=== PATIENT | female | born 1940 | race Caucasian/White ===

== ENCOUNTER 2023-01-04 17:28 | Emergency (ER) | payer OTHER ==
[~2023-01-04] VITALS: Ht 154.9 cm; Wt 68.7 kg
[2023-01-04] MEDS ORDERED: BUPROPION HCL150 M2 PO (17:53)
[2023-01-04] MEDS ORDERED: SERTRALINE HCL25 MG PO (17:53)
[2023-01-04] MEDS ORDERED: ROPINIROLE HCL5 MG PO (17:53)
[2023-01-04] MEDS ORDERED: VERAPAMIL ER240 MG PO (17:53)
[2023-01-04] MEDS ORDERED: LEVOTHYROXINE50 MCG PO (17:53)
[2023-01-04 18:03] LABS: BASOPHILS 1.4 % (0-2); EOSINOPHILS 5.5 % (0-6); HEMATOCRIT 35.2 % (35.0-50.0); HEMOGLOBIN 11.7 g/dL (12.0-18.0); LYMPHOCYTES 17.7 % (24-44); MCH 30.3 (27-36); MCHC 33.3 g/dl (30-36); MCV 90.8 fl (81-99); MONOCYTES 10.7 % (0-12); NEUTROPHILS 64.7 % (39-80); PLATELET COUNT 210 K/uL (140-440); RBC 3.88 M/ul (4.3-5.7); RDW 14.4 (10.5-15.0)
[2023-01-04 18:26] LABS: ALBUMIN 3.9 g/dL (3.4-5.0); ALBUMIN/GLOBULIN RATIO 1.34 (1.1-2.4); ANION GAP 9.8 (7-21); BILIRUBIN, TOTAL 0.3 ng/dL (0.2-1.0); BUN/CREATININE RATIO 42.25 (6.0-28.6); CALCIUM 9.1 mg/dL (8.5-10.1); CREATININE, SERUM 0.71 mg/dL (0.55-1.02); POTASSIUM 3.8 mmol/L (3.5-5.1); PROTEIN, TOTAL 6.8 g/dL (6.4-8.2)
[2023-01-04] MEDS ORDERED: HYDROCODON-ACE1 EA10 PO (19:03)
[2023-01-04 19:18] VITALS: BP 137/65
--- NOTE | 2023-01-05 22:46 | EKG ---
[facility] [address] [place] [address] Signed Normal sinus rhythm Normal ECG No previous ECGs available Confirmed by Lydia Alvarado MD () on 01/05/2023 10:45:39 PM Electronically Signed By: LYDIA ALVARADO MD 01/05/23 2246 PATIENT NAME: MARYBEL CAMARENA Electrocardiogram DATE OF : 40 PHYSICIAN: LYDIA ALVARADO MD REPORT #: [id number] REPORT IS CONFIDENTIAL AND NOT TO BE RELEASED WITHOUT AUTHORIZATION
== END 2023-01-04 19:19 | disposition home or self-care (01) ==
LOC: ED 17:28
PROVIDERS: Internal Medicine
DX: S20.211A Contusion of right front wall of thorax, initial encounter (principal); W19.XXXA Unspecified fall, initial encounter; I10 Essential (primary) hypertension; J44.9 Chronic obstructive pulmonary disease, unspecified; F17.210 Nicotine dependence, cigarettes, uncomplicated; Z79.899 Other long term (current) drug therapy
CPT/HCPCS: 36415; 71250; 80053; 83880; 84484; 85025; 85730; 93005; 93010; J2270

== ENCOUNTER 2023-04-05 08:26 | Observation (INO) | payer OTHER, MEDICARE ==
[~2023-04-05] VITALS: Ht 154.9 cm; Wt 62.2 kg
[~2023-04-05 08:26] MED LIST: BUPROPION HCL150 M2 PO; HYDROCODON-ACE1 EA10 PO; LEVOTHYROXINE50 MCG PO; ROPINIROLE HCL5 MG PO; SERTRALINE HCL25 MG PO; VERAPAMIL ER240 MG PO
[2023-04-05] MEDS ORDERED: ALEVE220 MG PO (08:42)
[2023-04-05] MEDS ORDERED: ARTHRITIS PAIN650 MG PO (08:43)
[2023-04-05 09:04] LABS: BASOPHILS 0.6 % (0-2); HEMATOCRIT 39.9 % (35.0-50.0); HEMOGLOBIN 13.2 g/dL (12.0-18.0); LYMPHOCYTES 21.2 % (24-44); MCH 29.8 (27-36); MCHC 33.2 g/dl (30-36); MONOCYTES 10.2 % (0-12); PLATELET COUNT 215 K/uL (140-440); RBC 4.43 M/ul (4.3-5.7); RDW 14.3 (10.5-15.0)
[2023-04-05 09:09] LABS: BILIRUBIN, URINE NEGATIVE (negative); BLOOD/HGB, URINE NEGATIVE (Negative); KETONE, URINE NEGATIVE (Negative); LEUK ESTERASE, URINE NEGATIVE (negative); NITRITE, URINE NEGATIVE (negative)
[2023-04-05 09:20] LABS: ALBUMIN 3.6 g/dL (3.4-5.0); ALBUMIN/GLOBULIN RATIO 1.13 (1.1-2.4); ANION GAP 14.8 (7-21); BILIRUBIN, TOTAL 0.7 ng/dL (0.2-1.0); BUN/CREATININE RATIO 22.53 (6.0-28.6); CALCIUM 9.1 mg/dL (8.5-10.1); CREATININE, SERUM 0.71 mg/dL (0.55-1.02); POTASSIUM 3.8 mmol/L (3.5-5.1); PROTEIN, TOTAL 6.8 g/dL (6.4-8.2)
[2023-04-05 09:41] LABS: INFLUENZA B NAA NEGATIVE (NEGATIVE); RESPIRATORY SYNCYTIAL VIR NAA NEGATIVE (NEGATIVE)
[2023-04-05 16:02] VITALS: BP 114/51
--- NOTE | 2023-04-05 16:26 | NUR ---
PT TO FLOOR WITH THIS RN AND NAVJOT RAYMUNDO. PT ALERT AND ORIENTED AND ANSWERED ALL QUESTIONS APPROP. SKIN ASSESS DONE. A FEW SCATTERED BRUISES. CALL LIGHT IN REACH. VS STABLE.
[2023-04-05 17:35] VITALS: BP 119/47
--- NOTE | 2023-04-05 17:39 | NUR ---
SERVICE ORDER DISPATCHER CHIEF ENTERED ROOM FOR VITALS. PT WAS SITTING UP IN BED EATING DINNER NO COMPLAINTS AT THIS TIME. [facility]
--- NOTE | 2023-04-05 18:47 | NUR ---
HELPED PT WITH CELL PHONE BEST I COULD. APPLIED ANTIFUNGAL POWDER IN FOLDS. PT STILL EATING DINNER. VERY IMPRESSED WITHT THIS [facility].
--- NOTE | 2023-04-05 18:55 | NUR ---
PT SITTING IN BED. PT WATCHING TV. PT HAS NO NEEDS AT THIS TIME.
--- NOTE | 2023-04-05 19:30 | NUR ---
BUSINESS PROCESS ASSOCIATE NAEEM AND THIS MAMMOGRAPHY TECHNICIAN CHANGED PATIENT DRAW SHEET, CHUX AND REPOSITIONED FOR COMFORT. BED ALARM ON FOR SAFETY.
[2023-04-05 20:30] VITALS: BP 124/53
[2023-04-06 03:20] VITALS: BP 118/71
[2023-04-06 06:52] VITALS: BP 151/77
--- NOTE | 2023-04-06 07:25 | NUR ---
HANDOFF REPORT RECEIVED FROM PEARL STRINGER RN. PT SLEEPING, LEFT UNDISTURBED, RESPIRATIONS EVEN AND UNLABORED. TELE #3 SINUS AMALIA.
--- NOTE | 2023-04-06 08:30 | NUR ---
PT SITTING IN CHAIR, FINISHING WITH PHYSICAL THERAPY. PT ON ROOM AIR, LUNG SOUNDS CLEAR, DENIES SOB. PT REPORT OF NUBNESS IN BILATERAL LOWER LEGS CHRONIC, WITHOUT EDEMA, HEELS INTACT WITHOUT REDNESS. BOWEL TONES ACTIVE, DENIES NAUSEA, BREAKFAST TRAY PROVIDED. PT INCONTINENT OF URINE, LARGE AMOUNTS, NEW PUREWICK PLACED AND PERICFARE PROVIDED. PT DENIES OTHER NEEDS AT THIS TIME, ENCOURAGED TO SIT IN CHAIR FOR LONG TOLERATED. CALL LIGHT WITHIN REACH.
[2023-04-06 08:41] VITALS: BP 151/77
[2023-04-06] MEDS ORDERED: VITAMIN D3125 MC2 PO (09:56)
[2023-04-06] MEDS ORDERED: CENTRUM ADULT80 MCG PO (10:00)
--- NOTE | 2023-04-06 10:00 | NUR ---
MED REC COMPLETE
[2023-04-06 10:05] VITALS: BP 151/77
--- NOTE | 2023-04-06 10:42 | NUR ---
INTO ROOM, PATIENT UP IN THE CHAIR. DAUGHTER IN LAW BREANNE AND DREW OT AT THE BEDSIDE. OT ASSESSMENT AND RECOMMENDATIONS COMPLETED. DISCUSSED DISCHARGE PLAN WITH PATIENT AND BREANNE. BREANNE STATES THAT THEY HAVE HIRED EXTRA CAREGIVING FOR THE PATIENT AND THAT SHE WILL BE STAY WITH THE PATIENT AT DISCHARGE. PATIENT HAS ALL NEEDED DME. PATIENT, FAMILY AND OT AGREEABLE TO HOME HEALTH PT/OT RECOMMENDATION. PATIENT STATES SHE FEELS COMFORTABLE DISCHARGING TODAY WITH THIS PLAN IN PLACE. DR. ALVARADO AND HEMANT RENEE RN UPDATED.
[2023-04-06 11:14] VITALS: BP 129/59
--- NOTE | 2023-04-06 11:18 | NUR ---
ADMINISTERED SCHEDULED MEDS. PT EXCITED TO GO HOME AND DO SOME EXCERCIES GIVEN TO HER BY PT.
== END 2023-04-06 11:55 | disposition home or self-care (01) ==
LOC: ED 08:26 → MS 08:28
PROVIDERS: Emergency Medicine; ADMIT Family Medicine; ATTEND Family Medicine
DX: R54 Age-related physical debility (principal); E03.9 Hypothyroidism, unspecified; G25.81 Restless legs syndrome; Z79.899 Other long term (current) drug therapy; W18.30XA Fall on same level, unspecified, initial encounter
CPT/HCPCS: 36415; 80053; 81003; 82553; 85025; 85651; 86140; 87502; 93005; 93010; 97161; 97165; 97530; G0378; U0002

== ENCOUNTER 2023-08-09 09:19 | Emergency (ER) | payer MEDICARE, OTHER ==
[~2023-08-09] VITALS: Ht 154.9 cm; Wt 67.9 kg
--- NOTE | ~2023-08-09 | EKG ---
[facility] [address] [place], [place] [address] Draft EK completed, results pending confirmation PATIENT NAME: MARYBEL CAMARENA Electrocardiogram DATE OF : 40 PHYSICIAN: PRELIMINARY REPORT #: [id number] REPORT IS CONFIDENTIAL AND NOT TO BE RELEASED WITHOUT AUTHORIZATION
[~2023-08-09 09:19] MED LIST changes: +ALEVE220 MG PO; +ARTHRITIS PAIN650 MG PO; +CENTRUM ADULT80 MCG PO; +FLOMAX0.4 MG PO; +PAXLOVID 300-11 EAC1 PO; +VITAMIN D3125 MC2 PO
[2023-08-09] MEDS ORDERED: GABAPENTIN 300 MG CAP PO ONE (09:45)
[2023-08-09] MEDS ORDERED: CYCLOBENZAPRINE HCL 10 MG TAB PO ONE (09:45)
[2023-08-09] MEDS ORDERED: ACETAMINOPHEN 500 MG TAB PO ONE (09:45)
[2023-08-09] MEDS ORDERED: ALBUTEROL/IPRATROPIUM 3 ML NEB INH ONE (11:15)
[2023-08-09 11:36] LABS: BASOPHILS 0.7 % (0-2); EOSINOPHILS 3.6 % (0-6); HEMATOCRIT 34.4 % (35.0-50.0); HEMOGLOBIN 11.1 g/dL (12.0-18.0); LYMPHOCYTES 19.4 % (24-44); MCH 29.3 (27-36); MCHC 32.2 g/dl (30-36); MCV 91.2 fl (81-99); MONOCYTES 8.9 % (0-12); NEUTROPHILS 67.4 % (39-80); PLATELET COUNT 213 K/uL (140-440); RBC 3.78 M/ul (4.3-5.7); RDW 14.8 (10.5-15.0)
[2023-08-09 11:59] LABS: ALBUMIN 3.4 g/dL (3.4-5.0); ALBUMIN/GLOBULIN RATIO 1.21 (1.1-2.4); ANION GAP 11.7 (7-21); BILIRUBIN, TOTAL 0.4 ng/dL (0.2-1.0); BUN/CREATININE RATIO 27.63 (6.0-28.6); CALCIUM 8.8 mg/dL (8.5-10.1); CREATININE, SERUM 0.76 mg/dL (0.55-1.02); POTASSIUM 3.7 mmol/L (3.5-5.1); PROTEIN, TOTAL 6.2 g/dL (6.4-8.2)
[2023-08-09] MEDS ORDERED: FUROSEMIDE40 MG PO (12:58)
[2023-08-09] MEDS ORDERED: METHYLPREDNISOLO4 M1 PO (12:58)
[2023-08-09 12:59] VITALS: BP 158/124
== END 2023-08-09 13:19 | disposition home or self-care (01) ==
LOC: ED 09:19
PROVIDERS: Emergency Medicine
DX: R60.0 Localized edema (principal); G25.81 Restless legs syndrome; I10 Essential (primary) hypertension; Z79.899 Other long term (current) drug therapy; Z79.890 Hormone replacement therapy
CPT/HCPCS: 36415; 71045; 72131; 80053; 83880; 85025; 93005; 93010; 93971; 94640; A9270

== ENCOUNTER 2023-09-27 09:24 | Inpatient (IN) | payer MEDICARE, OTHER ==
[~2023-09-27] VITALS: Ht 154.9 cm; Wt 59.0 kg
[~2023-09-27 09:24] MED LIST changes: +FUROSEMIDE40 MG PO; +METHYLPREDNISOLO4 M1 PO; -SERTRALINE HCL25 MG PO; +ZOLOFT50 MG PO
--- OUTSIDE RECORDS SUMMARY | 2023-09-27 09:25 | XMS ---
PreManage Notification: MARYBEL CAMARENA Security Rehabilitation Attendant Events No recent Security Events currently on file CRITERIA MET - BRIAN CARE PROVIDERS ARDEN HERNANDEZ Internal Medicine: Geriatric Medicine Current PHONE: Unknown RASHID CAMARENA Nurse Practitioner: Gerontology Current [facility] PHONE: [phone] JUSTIN López Internal Medicine Current PHONE: [phone] Claudette has no Care Guidelines for this patient. E.D. VISIT COUNT (12 MO.) [address] [facility] TOTAL 5 NOTE: Visits indicate total known visits. ED/UCC VISIT TRACKING (12 MO.) 09/27/2023 09:24 [facility] [place] TYPE: Emergency COMPLAINT: - BACK PAIN 08/09/2023 09:19 [facility] [place] TYPE: Emergency COMPLAINT: - RT LEG PAIN DIAGNOSES: - Essential (primary) hypertension - Hormone replacement therapy - Localized edema - Other watermelon harvesting supervisor (current) drug therapy - Restless legs syndrome 05/26/2023 17:25 [facility] [place] TYPE: Emergency COMPLAINT: - WEAKNESS DIAGNOSES: - COVID-19 - Essential (primary) hypertension - Hormone replacement therapy - Other watermelon harvesting supervisor (current) drug therapy - Restless legs syndrome - Weakness 04/05/2023 08:27 [facility] OR TYPE: Emergency COMPLAINT: - FALL, WEAKNESS 01/04/2023 17:28 [facility] OR TYPE: Emergency COMPLAINT: - FALL DIAGNOSES: - Chest pain, unspecified - Chronic obstructive pulmonary disease, unspecified - Contusion of right front wall of thorax, initial encounter - Essential (primary) hypertension - Nicotine dependence, cigarettes, uncomplicated - Other skilled nursing (current) drug therapy - Unspecified fall, initial encounter INPATIENT VISIT TRACKING (12 MO.) 04/05/2023 08:28 [facility] OR TYPE: Observation COMPLAINT: - WEAKNESS DIAGNOSES: - Age-related physical debility - Fall on same level, unspecified, initial encounter - Hypothyroidism, unspecified - Other skilled nursing (current) drug therapy - Restless legs syndrome - Weakness [email or web address]
[2023-09-27] MEDS ORDERED: TRAMADOL HCL25 MG PO (09:56)
[2023-09-27] MEDS ORDERED: ACETAMINOPHEN 325 MG TAB PO ONE (10:15)
[2023-09-27] MEDS ORDERED: SODIUM CHLORIDE 0.9% 500 ML IV ONE (10:15)
[2023-09-27] MEDS ORDERED: HYDROmorphone HCL 1 MG/ML SYR IV PRN (10:15)
[2023-09-27] MEDS ORDERED: LIDOCAINE HCL 4% 1 EACH PATCH TD ONE (10:15)
[2023-09-27] MEDS ORDERED: ROPINIROLE HCL 1 MG TAB PO ONE (10:30)
[2023-09-27 10:36] LABS: BASOPHILS 0.8 % (0-2); EOSINOPHILS 3.5 % (0-6); HEMATOCRIT 35.9 % (35.0-50.0); HEMOGLOBIN 11.8 g/dL (12.0-18.0); LYMPHOCYTES 24.5 % (24-44); MCH 29.6 (27-36); MCHC 32.7 g/dl (30-36); MCV 90.3 fl (81-99); MONOCYTES 8.1 % (0-12); NEUTROPHILS 63.1 % (39-80); PLATELET COUNT 215 K/uL (140-440); RBC 3.98 M/ul (4.3-5.7); RDW 16.7 (10.5-15.0)
[2023-09-27 10:52] LABS: ALBUMIN 3.1 g/dL (3.4-5.0); ALBUMIN/GLOBULIN RATIO 1.15 (1.1-2.4); ANION GAP 11.9 (7-21); BILIRUBIN, TOTAL 0.3 ng/dL (0.2-1.0); CALCIUM 8.7 mg/dL (8.5-10.1); CREATININE, SERUM 0.72 mg/dL (0.55-1.02); POTASSIUM 3.9 mmol/L (3.5-5.1); PROTEIN, TOTAL 5.8 g/dL (6.4-8.2)
[2023-09-27] MEDS ORDERED: LORazepam 2 MG/ML VIAL IV ONE (12:00)
[2023-09-27] MEDS ORDERED: GABAPENTIN 100 MG CAP PO ONE (12:00)
[2023-09-27] MEDS ORDERED: DULOXETINE HCL 30 MG CAP PO SCH (18:26)
[2023-09-27] MEDS ORDERED: PANTOPRAZOLE SODIUM 40 MG TABEC PO SCH (18:27)
--- NOTE | 2023-09-27 19:03 | NUR ---
PT ARRIVED VIA STRETCHER TO ROOM 107, ALERT AND ORIENTENED, TRANSFERED TO BED, STAND AND PIVOT, PT UNCOMFORTABLE WITH TRANSFER THAN RELAXES ONCE IN BED, QUICK ADMIT/WT/VS DONE PER KIMBERLY AGEE, SIDE RAILS UP X 4, CALL LIGHT IN PLACE, PT DENIES REQUESTS AT THIS TIME.
[2023-09-27 19:06] VITALS: BP 166/88
[2023-09-27] MEDS ORDERED: ondansetron HCL 4 MG/2 ML VIAL IV PRN (19:30)
[2023-09-27] MEDS ORDERED: PROCHLORPERAZINE EDISYLATE 10 MG/2 ML VIAL IV PRN (19:30)
[2023-09-27] MEDS ORDERED: KETOROLAC TROMETHAMINE 30 MG/ML VIAL IV PRN (19:30)
--- NOTE | 2023-09-27 19:45 | NUR ---
EMMA RN IN PT'S ROOM COMPLETING ADMIT ASSESSMENT.
--- NOTE | 2023-09-27 20:04 | NUR ---
Pt admitted at 1906 from ED to room 107 via stretcher, required alisa hopkins to transfer. alert to slef, place, situation, generalized date but not president or state governor. very talkative, clear speech. contracture of L finfers/hand present. weakness and difficulty moving R arm noted. Restless leg with involuntary tremors bilat noted while admitting. Cooperative with admit questions, oriented to room and equipment/procedures. turkey sandwich and juice give on requests, c/o restless legs, took Gabapentin, pepcid and Neurotin well. sips of juice, no swallowing issues noted. RIMA Hdz present. patent.
--- NOTE | 2023-09-27 20:41 | NUR ---
respositioned in bed, c/o hip hurting due to bed position, repositioned to her comfort, watching tv
[2023-09-27] MEDS ORDERED: LIDOCAINE PATCH REMOVAL 1 EA TD SCH (21:00)
[2023-09-27] MEDS ORDERED: GABAPENTIN 300 MG CAP PO SCH (21:00)
--- NOTE | 2023-09-27 22:25 | NUR ---
PT RESTING QUIETLY, AWAKENS EASILY, TALKATIVE, PT CONCERNED THAT SHE WON'T SLEEP UNLESS SHE GETS HER REQUIP FOR RESTLESS LEG, TC TO DR ELIAS MD DOES NOT WANT TO USE THIS MEDICATION TONIGHT, PLAN TO OFFER TORADOL FOR PAIN PRN.
--- NOTE | 2023-09-27 22:34 | NUR ---
RN TO BEDSIDE, DISCUSSED THAT MD DOES NOT WANT TO START REQUIP TONIGHT, OFFERED TORADOL, PT AGREES, MEDICATED WITH 30MG TORADOL IV PER ORDER, ADMIT ASSESSMENT COMPLETED, SL PATENT RIGHT FOREARM PATENT. PT ATTEMPTING TO REST, SIDE RAILS UP X 4, BED ALARM ON.
--- NOTE | 2023-09-27 23:20 | NUR ---
PT RESTING WITH EYES CLOSED, PERIODICALLY MOVING LEGS, RESP EVEN AND REG.
[2023-09-27 23:27] VITALS: BP 166/88
[2023-09-27] MEDS ORDERED: ACETAMINOPHEN 500 MG TAB PO PRN (23:45)
[2023-09-28] VITALS (11 sets, daily range): BP systolic 94–153; BP diastolic 53–112
--- NOTE | 2023-09-28 00:09 | NUR ---
PT VERY UPSET, TEARFUL, C/O SEVERE RESTLESS LEG PAIN IN UPPER THIGH, MEDICATED WITH 500MG TYLENOL PO (NIO), ATTEMPTED USE OF SCD BUT PT DIDN'T TOLERATE THEM, C/O PAIN IN UPPER THIGHS,PT REPOSITIONED TO RIGHT SIDE, CALMING A BIT, LEGS REMAIN JERKY.
[2023-09-28] MEDS ORDERED: diphenhydrAMINE HCL 50 MG/ML VIAL IV PRN (01:30)
--- NOTE | 2023-09-28 01:30 | NUR ---
PT RESTLESS, TEARFUL AND UPSET, ROLLED TO FAR RIGHT SIDE, UNABLE TO REST STILL DUE TO C/O PAINFUL LEGS, WARM PACKS GIVEN FOR LEGS PER EMMA RN, VS COMPLETED PER EMMA RN, TC TO DR GRIFFIN TO UPDATE ON PT'S CONDITION, ORDERS RECEIVED FOR BENADRYL 25MG IV Q6 HOUR PRN.
--- NOTE | 2023-09-28 01:35 | NUR ---
PT CONTINUES TO C/O PAIN, RESTLESS, MOVING ABOUT IN BED, MEDICATED WITH BENADRYL 25MG IV PER ORDER, WARM PACK PLACED LEFT SIDE OVER BLANKET, AND ICE PACK PER RIGHT HIP OVER GOWN PER PT REQUEST.
--- NOTE | 2023-09-28 01:45 | NUR ---
REDDENED AREA NOTED ON LEFT HIP POSSIBLY R/T HOT PACKS, PACKS REMOVED, PT REQUESTING ICE PACK TO RIGHT HIP, GIVEN.
--- NOTE | 2023-09-28 02:17 | NUR ---
EKG OBTAINED, AFIB. PT VERY RESTLESS, REDIRESCTABLE
--- NOTE | 2023-09-28 02:21 | NUR ---
CALLED TO REPORT PATIENT HAS BEEN IN AFIB SINCE ADMISSION, EKG DONE READS AFIB. ALSO RELATED THAT PATIENT IS NOT ON BLOOD THINNERS, LAST EKG WAS IN AUGUST PATIENT WAS IN SINUS RHYTHM WITH PAC COMPLEXES THEN. MED/SURG REPORTS SHE IS HOLDING THE BED RAILS AND SHAKING THEM IN PAIN. DIFFICULT TO MONITOR CLOSE ON TELEMETRY DUR TO ARTIFACT FROM PATIENT ACTIVITY IN BED. REPORTED PATIENT IS HAVING HEART RATES UP TO 100/MIN UP TO 150/MIN AT TIMES NOT SUSTAINED. NO NEW ORDERS AT THIS TIME, HE WILL ADDRESS MEDICATIONS IN THE AM, HE FEELS THIS MAY BE MEDICATION RELATED.
[2023-09-28] MEDS ORDERED: VERAPAMIL HCL 240 MG TABCR PO SCH (02:33)
[2023-09-28] MEDS ORDERED: APIXABAN 5 MG TAB PO SCH (02:34)
--- NOTE | 2023-09-28 02:50 | NUR ---
TC FROM LISA RIVET TESTER WHO DISCUSSED CONVERSATION WITH DR GRIFFIN, NOTES WRITTEN BY THIS RN REVIEWED.
--- NOTE | 2023-09-28 02:59 | NUR ---
PT REMAINS RESTLESS, HR 130'S, VERAPAMIL 240MG PO GIVEN PER ORDER WITH SIP OF WATER.
--- NOTE | 2023-09-28 03:15 | NUR ---
PT REMAINS RESTLESS, TURNING FREQUENTLY, RHEANA EXPERIMENTAL PSYCHOLOGIST STAYING IN ROOM WITH PT FOR REASSURANCE AND SAFETLY PROTECTION.
--- NOTE | 2023-09-28 03:15 | NUR ---
ELIQUIS GIVEN PER ORDER FOR ATRIAL FIB. TELE PHARM CALLED TO VOICE CONCERNS WITH TORADOL AND ELIQUIS GIVEN TOGETHER DUE TO INCREASED BLEEDING RISK, LAST TORADOL GIVEN 09/27/23 AT 2234.
--- NOTE | 2023-09-28 03:17 | NUR ---
PT REMAINS RESTLESS, MEDICATED WITH ELIQUIS 5MG PO PER ORDER FOR ONSET AFIB
--- NOTE | 2023-09-28 04:05 | NUR ---
LINEN CHANGED DUE TO INCONTINENCE OF URINE, UNABLE TO MAINTAIN A PUREWICK DUE TO PT'S RESTLESSNESS, 3 PERSON ASSIST WITH LINEN CHANGE. LEFT HIP REDDENED AREA DECREASING IN SIZE FROM POSSIBLE EARILIER WARM PACK PLACEMENT.
--- NOTE | 2023-09-28 04:19 | NUR ---
PT'S HR PER TELE NOW 109-112, SPECIAL FORCES ENGINEER SERGEANT REMAINS AT BEDSIDE.
--- NOTE | 2023-09-28 05:24 | NUR ---
VS DONE, HR 100-110, PT REMAINS RESTLESS, MOVING LEGS, FLEXING TOWARD CHEST, RN REMAINS AT BEDSIDE.
--- NOTE | 2023-09-28 05:28 | NUR ---
CONTINUOUES TO BE VERY ANXIOUS, HYPERVENTILATING, MOANING ANS SCREAMING "PLEASE HELP ME GOD, HELP ME", VERY RESTLESS IN BED, TWISTING AND TRASHING IN BED, ELEVATING BOTH LEGS TO CHEST, NOT RECEPTIVE TO INFORAMTION/TEACHING GIVEN TO HELP HER WITH HER BACK PAIN. BED ALRM ON PT ON 1:1, CONT TO REINFORCE TEACAHING AND REASSURING WORDS.
--- NOTE | 2023-09-28 05:34 | NUR ---
LAB IN FOR AM BLOOD DRAW.
[2023-09-28 05:41] LABS: BASOPHILS 0.7 % (0-2); EOSINOPHILS 2.2 % (0-6); HEMATOCRIT 38.8 % (35.0-50.0); HEMOGLOBIN 12.8 g/dL (12.0-18.0); LYMPHOCYTES 19.6 % (24-44); MCH 29.6 (27-36); MCHC 32.9 g/dl (30-36); MCV 89.9 fl (81-99); MONOCYTES 7.3 % (0-12); NEUTROPHILS 70.2 % (39-80); PLATELET COUNT 227 K/uL (140-440); RBC 4.32 M/ul (4.3-5.7); RDW 16.7 (10.5-15.0)
--- NOTE | 2023-09-28 05:52 | NUR ---
pt alert and oriented, grunting noted, restless, continues to c/o lower back and R leg pain. moving lower extremiteis well. contractures of L hand present, moves it slow but well. restricted movement to R arm noted. "Since my accident, I fell, this arms has been this nereyda, no Im not having chest pain, just my back". Primary RN notified. LE elvated ub pillows, pure wick in place.
[2023-09-28] MEDS ORDERED: MORPHINE SULFATE 30 MG TABCR PO SCH ×2 (06:00→09:00)
--- NOTE | 2023-09-28 06:01 | NUR ---
DR GRIFFIN NOTIFIED VIA PHONE ABOUT PTS INCREAED GRUNTING SOUND, STILL VERY RESTLESS, TACHYCHARDIC, INCREASED RESPIRATION. RESTLESS MOVING OF LEGS UP AND DOWN TOWARDS CHEST AND STRETCHING THEM OUT. MOVING L ARM,. C/O BACK PAIN, NOT RECEPTIVE TO INSTRUCTIONS BEING GIVEN BY THIS RN. LE ELEVATED W PILLOWS ALERT AND ORIENTED. INFORMED OF NIGHT PHARMACISTS CONCERNS WITH ELIQUIS AND TORADOL MEDS, STATED HE WOULD WRITE THE ORDER FOR SOMETHING STRONGER
[2023-09-28 06:05] LABS: ALBUMIN 3.4 g/dL (3.4-5.0); ALBUMIN/GLOBULIN RATIO 1.21 (1.1-2.4); ANION GAP 13.2 (7-21); BILIRUBIN, TOTAL 0.5 ng/dL (0.2-1.0); BUN/CREATININE RATIO 22.97 (6.0-28.6); CALCIUM 8.6 mg/dL (8.5-10.1); CREATININE, SERUM 0.74 mg/dL (0.55-1.02); MAGNESIUM 1.3 mg/dL (1.8-2.4); POTASSIUM 4.2 mmol/L (3.5-5.1); PROTEIN, TOTAL 6.2 g/dL (6.4-8.2)
--- NOTE | 2023-09-28 06:48 | NUR ---
PT REMAINS AWAKE, GRIMACING, TALKATIVE ABOUT INJURY TO BACK AND LEG, PT MEDICATED WITH MS CONTIN PER ORDER, PT INSTRUCTED THAT MEDICATION IS FOR PAIN, PT INCONTINENT OF URINE, ATTENDS CHANGED AFTER PERICARE COMPLETED, PT TAKING SIPS OF WATER, REPOSITIONED UP IN BED, LEGS ELEVATED ON PILLOWS PER REQUEST OF PT, PT APPEAR LESS RESTLESS, REMAINS AWAKE, MOVING LEGS LESS AT THIS TIME.
--- NOTE | 2023-09-28 07:15 | NUR ---
Report received from ophthalmic pathologist RN. Pt. laying in bed, legs restless and painful. Call light within reach.
--- NOTE | 2023-09-28 07:48 | NUR ---
UR CLINICAL REVIEW: 2 MN FOR VERSALUS-MEETS OB CRITERIA MEDICARE OBS 09/27/23 @ 1821 ORDER MATCHES REG NO AUTH REQUIRED PER MEDICARE GUIDELINE DISCHARGE DISPOSITION PENDING FURTHER EVALUATION 09/28/23
--- NOTE | 2023-09-28 08:45 | NUR ---
PT. LAYING IN BED, EYES OPEN. LEGS KICKING AROUND AND CAN'T HOLD THEM STILL. CALL LIGHT WITHIN REACH. SON IN ROOM.
[2023-09-28] MEDS ORDERED: SERTRALINE HCL 25 MG TAB PO SCH (09:00)
[2023-09-28] MEDS ORDERED: LIDOCAINE HCL 4% 1 EACH PATCH TD SCH (09:00)
[2023-09-28] MEDS ORDERED: TRAMADOL HCL50 MG PO (09:21)
--- NOTE | 2023-09-28 09:30 | NUR ---
PT LAYING IN BED WITH EYES OPEN. PT HAS RESTLESS LEGS AND IS COMPLAINING OF 10/10 PAIN. OT AND PT CAME IN TO WORK WITH PT AND HAD HER SIT AT THE EDGE OF THE BED. PT. MOANING IN PAIN AND WAS PUT BACK INTO BED. ANUEL HARRIS CALLED TO DISCUSS PAIN LEVEL. CALL LIGHT WITHIN REACH. SON IN ROOM.
--- NOTE | 2023-09-28 09:44 | NUR ---
DR. GRIFFIN NOTIFIED PT REPORT OF PAIN IN BLE AND BLE RESTLESSNESS. PT WORKS WITH PT. PT UNABLE PT FULLY PARTICIPATE DUE TO FEAR AND PAIN. NEW ORDER RECEIVED FOR ATIVAN, SEE EMAR.
[2023-09-28] MEDS ORDERED: LORazepam 2 MG/ML VIAL IV ONE (09:45)
--- NOTE | 2023-09-28 10:20 | NUR ---
VISITED DURING SPIRITUAL CARE ROUNDS. PT RESTLESS IN BED, RN GIVING MEDICATION, SON IN ROOM. CHART CHANGER LISTENED EMPATHETICALLY SON TALKED OF REPEATED SIGNIFICANT LOSSES IN FAMILY OVER PAST 6 YEARS, PROVIDED SUPPORTIVE PRESENCE, HOSPITALITY, PRAYER. SON EXPRESSED GRATITUDE FOR VISIT.
--- NOTE | 2023-09-28 10:30 | NUR ---
PT. LAYING IN BED AND URINATED OUT OF ATTENDS. PT CHANGED AND BEDDING CHANGED. SON IN ROOM. CALL LIGHT WITHIN REACH.
--- NOTE | 2023-09-28 10:33 | NUR ---
SPOKE WITH DR. GRIFFIN REGARDING PATIENT PT EVAL. VERBAL ORDERS DR. GRIFFIN/Misael MORGAN, RN, TO CHANGE STATUS TO INPATIENT AND PLAN TO DC PATIENT TO SNF. JOLANTA, SON, IN ROOM WITH PATIENT. INFORMED PATIENT WILL LIKELY NEED SNF. JOLANTA STATES PATIENT HAS BEEN TO A SNF PREVIOUSLY IN [place]. PRISON FACILITY CHOICE LETTER AND LIST OF FACILITES PROVIDED TO JOLANTA TO REVIEW. INFORMED HIM PATIENT WILL NEED TO REMAIN INPATIENT 3 DAYS PRIOR TO DC TO SNF. VERBALIZES UNDERSTANDING. ALLOWED TIME TO REVIEW LIST. WILL RETURN TO VERIFY FACILITY PREFERENCES.
--- NOTE | 2023-09-28 10:37 | NUR ---
MED REC COMPLETE
[2023-09-28] MEDS ORDERED: MELATONIN3 MG PO (10:38)
--- NOTE | 2023-09-28 10:49 | NUR ---
Pt. very restless in bed. For pt. safety mats placed on floor, bed alarm on. Son in room. Call light within reach.
--- NOTE | 2023-09-28 11:55 | NUR ---
PT LAYING IN BED RESTING WITH EYES CLOSED. LEGS CONTINUE TO CONSTANTLY MOVE. SON IN ROOM. PT MOANING OCCASSIONALLY BUT EYES CONTINUE TO BE CLOSED. FOR SAFETY BED ALARM ON, MATS ON FLOOR. CALL LIGHT WITHIN REACH.
--- NOTE | 2023-09-28 11:58 | NUR ---
SPOKE WITH SON AND [id number]. THEY REQUEST CHART BE SENT TO [place] AT THE [facility] FOR SNF. CONSIDERING LTC POST SNF ALSO DISCUSSED LIQUIFIED NATURAL GAS SPECIALIST MEDICAID IN THE FUTURE AND POSSIBLE NEED. DISCUSS TRANSPORTATION TO SNF, PREFER NONEMERGENT TRANSPORT DUE TO PAIN AND PATIENT INABILITY TO SIT. WILL DISCUSS FURTHER AFTER PATIENT ACCEPTED TO SNF.
[2023-09-28] MEDS ORDERED: PHARMACY RENAL DOSE ADJUSTMENT 1 DOSE MISC PO SCH (12:00)
--- NOTE | 2023-09-28 12:50 | NUR ---
PT RESTS IN BED WITH EYES CLOSED, RESP EVEN AND UNLABORED. NOTED GROSS JERKY MOVEMENT OF THE LOWER EXTREMITIES PERSIST. FALL MATTS IN ROOM ON FLOOR. BED ALARM ON.
--- NOTE | 2023-09-28 13:40 | NUR ---
PT. RESTING IN BED, EYES CLOSED. RESPIRATIONS EVEN AND UNLABORED. LEGS CONTINUE TO BE CONSTANTLY MOVING. CALL LIGHT WITHIN REACH. FOR SAFETY MATS IN PLACE AND BED ALARM ON.
--- NOTE | 2023-09-28 16:03 | NUR ---
PT RESTING IN BED WITH EYES CLOSED. LEGS CONTINUE TO MOVE. SON AT BEDSIDE. RESPIRATIONS EVEN AND UNLABORED. CALL LIGHT WITHIN REACH.
--- NOTE | 2023-09-28 16:42 | NUR ---
DR GRIFFIN IN PT ROOM VISITING WITH SON ABOUT PLAN OF CARE.
--- NOTE | 2023-09-28 16:59 | NUR ---
DESIGNER AND PATTERNMAKER TOOK 1455 AND 1500 VITAL SIGNS. THIS RN ENTERING INTO THE COMPUTER.
--- NOTE | 2023-09-28 17:29 | NUR ---
PT IS AWAKE AND ALERT NOW. DINNER OFFERED. PT STATES SHE WOULD LIKE TO EAT. PT ASSISTED TO REPOSITION IN BED, MEAL TRAY ARRANGED IN FRONT OF PT. PT RE-ORIENTED TO TIME SHE DID NOT REALIZE SHE HAD SLEPT THOUGHT THE DAY.
--- NOTE | 2023-09-28 18:03 | NUR ---
PT ASSISTED UP TO RECLINER FOR COMFORT. PT TRANSFERED TO RECLINER VIA LEOLA EWING. PT TOLERATED FAIR. CHAIR ALARM IN PLACE, CALL LIGHT IN REACH.
--- NOTE | 2023-09-28 18:05 | NUR ---
PATIENT UP TO CHAIR, 2PA SARASTEDY. PATIENT PAINFUL WHEN SITTING UP, COMPLAINS OF RIGHT HIP HURTING WHEN IN AN UP RIGHT POSITION, RN AWARE. VITALS AND I&O'S DONE AND CHARTED. PATIENT IN RECLINED CHAIR. CHAIR ALARM ON. CALL LIGHT IN REACH.
--- NOTE | 2023-09-28 18:31 | NUR ---
STATIC WAFFLE OVERLAY PLACED ON BED SURFACE. PT RESTS CALMLY IN RECLINER. NO JERKY LOWER EXTREMTIY MOVEMENT NOTED AT THIS TIME.
--- NOTE | 2023-09-28 18:40 | NUR ---
PT UP TO CHAIR TO EAT. DUE TO PAIN PT STATES SHE CAN NOT SIT UP TO EAT. LEGS NOT KICKING AROUND MUCH EARLIER. CHAIR ALARM ON FOR SAFETY, CALL LIGHT WITHIN REACH.
--- NOTE | 2023-09-28 19:10 | NUR ---
Report received from day RN. Patient resting in recliner. No needs at this time. Call light within reach.
--- NOTE | 2023-09-28 20:56 | NUR ---
IN ROOM WITH JUAN CARLOS ESPINOSA TO TRANSFER pt, pt TRANSFERED FROM CHAIR TO BED VIA SHANE. pt TOLERATED WELL. pt IN BED, BOOSTED WITH CLEAN CHUCKS/PUREWICK/ATTENDS-INCONTINENT X1. HUSAM CARE COMPLETED. BED ALARM RESUMED AND FRESH ICE WATER PROVIDED. pt ATE APPROX 85% OF DINNER. CALL LIGHT IN REACH AND ROOM TIDED. NAVJOT VERDUZCO IN ROOM.
--- NOTE | 2023-09-28 21:30 | NUR ---
PATIENT RESTING IN BED. HS MEDICATIONS GIVEN. IV SITE PATENT. TELE IN PLACE READINGS WNL AT THIS TIME. PATIENT C/O PAIN. ORN GIVEN. LUNGS CTA, BOWEL TONES ACTOVE X 4 QUADRANTS. LEGS APPEAR RESTLESS AT TIMES. PATIENT REQUESTED A PUDDING. EATTING CHOCOLATE PUDDING WITH NO ISSUES OR CONCERNS. FRESH ICE WATER GIVEN. NO FURTHER NEEDS AT THIS TIME. CALL LIGHT WITHIN REACH.
--- NOTE | 2023-09-28 21:59 | EKG ---
[facility] [address] [place] [address] Signed Atrial fibrillation with rapid ventricular response with premature ventricular or aberrantly conducted complexes Inferior infarct , age undetermined Abnormal ECG No previous ECGs available Confirmed by DANA GRIFFIN MD ([id number]) on 09/28/2023 9:59:13 PM Electronically Signed By: DANA GRIFFIN 09/28/23 2159 PATIENT NAME: MARYBEL CAMARENA Electrocardiogram DATE OF : 40 PHYSICIAN: DANA GRIFFIN REPORT #: [id number] REPORT IS CONFIDENTIAL AND NOT TO BE RELEASED WITHOUT AUTHORIZATION
--- NOTE | 2023-09-28 23:40 | NUR ---
ICE PACK GIVEN. PLACED TO RIGHT HIP/LEG.
[2023-09-29] VITALS (13 sets, daily range): BP systolic 89–131; BP diastolic 42–79
--- NOTE | 2023-09-29 00:01 | NUR ---
PATIENT RESTLESS IN BED. PRN GIVEN. NO FURTHER NEEDS AT THIS TIME. CALL LIGHT WITHIN REACH.
--- NOTE | 2023-09-29 02:00 | NUR ---
PATIENT RESTING IN BED WITH EYES CLOSED. RESPIRATIONS EVEN AND UNLABORED. CALL LIGHT WITHIN REACH.
--- NOTE | 2023-09-29 04:12 | NUR ---
PATIENT RESTING IN BED WITH EYES CLOSED. RESPIRATIONS EVEN AND UNLABORED. CALL LIGHT WITHIN REACH.
--- NOTE | 2023-09-29 06:17 | NUR ---
PATIENT RESTING IN BED WITH EYES CLOSED. RESPIRATIONS EVEN AND UNLABORED. CALL LIGHT WITHIN REACH.
--- NOTE | 2023-09-29 07:05 | NUR ---
RPT RECEIVED FROM ANUEL LUIS. PT RESTING IN BED WITH EYES CLOSED. RESPIRATIONS EVEN AND UNLABORED. NO S/S OF PAIN/ DISTRESS. MATS DOWN ON FLOOR AND BED ALARM ON FOR SAFETY. CALL LIGHT WITHIN REACH.
--- NOTE | 2023-09-29 07:10 | NUR ---
REPORT RECIEVED WITH ANUEL CORONA FROM ANUEL LUIS. PT RESTING IN BED WITH EYES CLOSED. RR EVEN AND UNLABORED. NO NEEDS IDENTIFIED AT THIS TIME. CALL LIGHT IN REACH. BED ALARM ON.
--- NOTE | 2023-09-29 07:58 | NUR ---
UR CLINICAL REVIEW: 2 MN FOR VERSALUS-MEETS INPT CRITERIA MEDICARE OBS TO INPT 09/28/23 @ 1043 NO AUTH REQUIRED PER MEDICARE GUIDELINES DISCHARGE PENDING ONGOING NEED FOR PAIN CONTROL AND PT EVAL.
[2023-09-29] MEDS ORDERED: NAPROXEN 500 MG TAB PO PRN (08:30)
[2023-09-29] MEDS ORDERED: GABAPENTIN 300 MG CAP PO SCH (09:04)
--- NOTE | 2023-09-29 09:15 | NUR ---
PT SITTING UP IN BED EATING MORNING MEAL. PT STATES 5/10 PAIN IN RIGHT HIP. MORNING MEDICATIONS ADMINISTERED. PT. SWALLOWED PO MEDICATIONS WITHOUT PROBLEM. EXPIRATORY WHEEZES HEARD THROUGHOUT. PHYSICAL THERAPY IN ROOM TO WORK WITH PT. PT DID NOT WANT TO WORK WITH PHYSICAL THERAPY. BUT HAS AGREED TO SIT ON EDGE OF BED. SON IN ROOM.
--- NOTE | 2023-09-29 09:25 | NUR ---
PATIENT IN BED. APPEARS COMFORTABLE WHILE TAKING AM MEDICATIONS. SON, JOLANTA, IN ROOM. UPDATED FACILITIES HAVE NOT YET RESPONDED WHETHER OR NOT THEY WILL BE ABLE TO ACCEPT PATIENT YET. WILL INFORM HIM WHEN FACILITIES RESPOND. DENIES QUESTIONS AT THIS TIME.
[2023-09-29] MEDS ORDERED: PRAMIPEXOLE DIHYDROCHLORIDE 0.25 MG TAB PO SCH (09:37)
--- NOTE | 2023-09-29 10:09 | NUR ---
RECEIVED NOTIFICATION FROM CAROLINA AT [facility], UNABLE TO TAKE PATIENT DUE TO BED AVAILABILITY. NO BEDS OPEN UNTIL WEDNESDAY OR WEDNESDAY NEXT WEEK.
--- NOTE | 2023-09-29 10:30 | NUR ---
VISITED DURING SPIRITUAL CARE ROUNDS. PT TALKED OF RICARDO JOURNEY, FAMILY; STRONG RELATIONAL AND RICARDO RESOURCES EXHIBITED. PREPRESS OPERATOR PROVIDED SUPPORTIVE PRESENCE, FACILITATED LIFE REVIEW, EXPLORED RICARDO PRACTICE, PROVIDED INVESTIGATOR VICE EDUCATION, PROVIDED PRAYER. PT EXPRESSED GRATITUDE, HOPE.
--- NOTE | 2023-09-29 11:20 | NUR ---
OT INTO ROOM TO WORK WITH PT. PT BACK TO BED FROM CHAIR WITH 3 PERSON SLAVA TORRES. PT TOLERATED WELL. NAPROXIN GIVEN FOR 8/10 PAIN. PT CURRENTLY RESTING IN BED WITH EYES CLOSED. RESPIRATIONS EVEN AND UNLABORED. NO S/S OF PAIN/ DISTRESS. CALL LIGHT AND NEEDED ITEMS WITHIN REACH.
--- NOTE | 2023-09-29 11:23 | NUR ---
RECEIVED CALL FROM LEOLA AT [facility] STATING THEY CAN ACCEPT THE PATIENT ON WEDNESDAY FOR SNF.
--- NOTE | 2023-09-29 12:15 | NUR ---
SPOKE WITH JOLANTA, SON, NOTIFIED OF ACCEPTANCE TO [facility]. STATES HE WOULD LIKE PATIENT TO BE TRANSPORTED VIA [facility] WHEN SHE IS TRANSFERRED. STATES SHE SAT IN RECLINER AND TOLERATED WELL SO HE BELIEVES A [facility] IS ACCEPTABLE. INFORMED TRANSPORT WILL BE SET UP AND HE WILL BE UPDATED ON TIME OF TRANSFER.
--- NOTE | 2023-09-29 12:30 | NUR ---
MD IN ROOM DISCUSSING PLAN OF CARE WITH SON. PT RESTING IN BED, EYES CLOSED. RESPIRATIONS EVEN AND UNLABORED. NO S/S OF PAIN/ DISTRESS. CALL LIGHT AND NEEDED ITEMS AT BEDSIDE.
--- NOTE | 2023-09-29 13:23 | NUR ---
THIS RN CALLED DR. GRIFFIN REGARDING PTs MAGNESIUM LAB ON 09/28/23 BEING 1.3 AND NO REPLACEMENT WAS GIVEN 09/28/23. THIS RN INFORMED DR. GRIFFIN THERE WERE NO LABS DRAWN ON PT THIS MORNING AND ASKED IF DR. GRIFFIN WOULD LIKE TO GET ANY LABS. VERBAL ORDERS FROM DR. GRIFFIN "GIVE 2GM OF MAGNESIUM IV NOW AND RECHECK THE MAGNESIUM 1 HOUR AFTER MAGNESIUM IS COMPETE." VERIFIED WITH READBACK.
[2023-09-29] MEDS ORDERED: MAGNESIUM SULFATE 2 GM/50 ML BAG IV ONE (13:30)
--- NOTE | 2023-09-29 14:07 | NUR ---
IN TO ADMINISTER MEDICAITON, SEE MAY. PT RESTING IN BED ON LEFT SIDE, EYES CLOSED, RR EVEN AND UNLABORED. PTs SON IN ROOM. IV FLUSHES WNL. IV MAGNESIUM STARTED, SEE MAY. NO OTHER NEEDS IDENTIFIED AT THIS TIME. CALL LIGHT IN REACH. BED ALARM ON. SON DENIES ANY NEEDS AT THIS TIME.
--- NOTE | 2023-09-29 15:25 | NUR ---
PT RESTING IN BED WITH EYES CLOSED. NO S/S OF PAIN/ DISTRESS. RESPIRATIONS EVEN AND UNLABORED. BED ALARM ON FOR SAFETY. CALL LIGHT WITHIN REACH.
--- NOTE | 2023-09-29 15:50 | NUR ---
LAB IN ROOM WITH PATIENT.
--- NOTE | 2023-09-29 16:20 | NUR ---
PT REPOSITIONED IN BED. PT STATED THAT SHE IS VERY COMFORTABLE AND HASN'T FELT THIS COMFORTABLE AND SLEPT THIS WELL IN A VERY LONG TIME. SHE STATED HER PAIN WAS MUCH BETTER. PT STATED SHE WOULD GUESS A 1 OR 2/ 10 PAIN ALL OVER HER BODY. PT LAYING IN BED, EYES OPEN. RESPIRATIONS EVEN/ UNLABORED. NO S/S OF PAIN/ DISTRESS. CALL LIGHT AND FRESH ICE WATER WITHIN REACH.
--- NOTE | 2023-09-29 17:30 | NUR ---
PT REPOSITIONED IN BED. RESPIRATIONS EVEN AND UNLABORED. CALL LIGHT AND NEEDED ITEMS WITHIN REACH.
--- NOTE | 2023-09-29 17:45 | NUR ---
SAT PT UP IN BED FOR EVENING MEAL. PT WANTED TV ON AND SAID SHE IS HAVING SOME PAIN IN THAT RIGHT HIP/ JOINT. PT EATING AND WATCHING TV. RESPIRATIONS EVEN AND UNLABORED. NO S/S OF DISTRESS. CALL LIGHT WITHIN REACH. BED ALARM ON FOR SAFETY.
--- NOTE | 2023-09-29 19:02 | NUR ---
IN TO DO VITALS AND I&O'S. PATIENT COMPLAINING OF SOME PAIN IN RIGHT HIP, LOWERED HEAD OF BED AND PATIENT SAID IT HELPED SOME. DID VITALS AND I&O'S. BLOOD PRESSURE LOW, RN NOTIFIED. CALL LIGHT IN REACH. NO FURTHER NEEDS AT THIS TIME.
--- NOTE | 2023-09-29 19:27 | NUR ---
REPORT RECIEVED FROM DAY SHIFT RN. PATIENT RESTING IN BED. PATIENT DENIES NEEDS AT THIS TIME. CALL LIGHT IN REACH.
--- NOTE | 2023-09-29 19:27 | NUR ---
Updated Dr. Quiñones regarding bp 92/42, p71. Per Dr. Quiñones continue to monitor patient, no new orders at this time.
--- NOTE | 2023-09-29 20:35 | NUR ---
PATIENT RESTING IN BED WITH DAUGHTER IN LAW IN ROOM. VS AND I&Os OBTAINED AND RECORDED. SCHEDULED MEDICATIONS ADMINISTERED. PRN PAIN MEDICATION ADMINISTERED PER PATIENT REQUEST. PATIENT REPORTS 09/14 R HIP PAIN. THIS RN CALLED TELE PHARMACY ABOUT ADMINSITERING VERAPAMIL GIVEN PATIENT LOW BP. TELE PHARMACY GAVE VERBAL OK TO ADMINISTER MEDICATION. TELE PHARMACY STATED "THIS COULD HELP THE BP INCREASE, I DO NOT SEE A REASON NOT TO GIVE IT". NO FURTHER NEEDS AT THIS TIME. CALL LIGHT IN REACH.
[2023-09-29] MEDS ORDERED: BENZTROPINE MESYLATE 1 MG TAB PO SCH (21:00)
--- NOTE | 2023-09-29 22:34 | NUR ---
PATIENT RESTING IN BED WITH EYES CLOSED. RESPIRATIONS EVEN AND UNLABORED. CALL LIGHT IN REACH.
[2023-09-30] VITALS (13 sets, daily range): BP systolic 95–135; BP diastolic 55–87
--- NOTE | 2023-09-30 00:36 | NUR ---
VS AND I&Os OBTAINED AND RECORDED. NEW BRIEF AND PUREWICK PLACED AFTER PERICARE PROVIDED. PATIENT REPORTS 4/10 R HIP PAIN. PRN PAIN MEDICATION ADMINISTERED. PATIENT DENIES FURTHER NEEDS. BED ALARM ON FOR SAFETY. CALL LIGHT IN REACH. PATIENT REPOSITIONED IN BED.
--- NOTE | 2023-09-30 02:17 | NUR ---
PATIENT RESTING IN BED ON BACK WITH EYES CLOSED. RESPIRATIONS EVEN AND UNLABORED. CALL LIGHT IN REACH.
--- NOTE | 2023-09-30 04:40 | NUR ---
PATIENT RESTING IN BED ON BACK WITH EYES CLOSED. RESPIRATIONS EVEN AND UNLABORED. CALL LIGHT IN REACH.
--- NOTE | 2023-09-30 05:41 | NUR ---
KNOT SAW OPERATOR OBTAINED VITALS AND INTAKE. NO NEW OUTPUT NOTED. PT STATES NO FURTHER NEEDS AT THIS TIME. CALL LIGHT WITHIN REACH.
--- NOTE | 2023-09-30 06:26 | NUR ---
PATIENT RESTING IN BED. PATIENT REPORTS 5/10 R HIP PAIN. SCHEDULED MEDICATION ADMINISTERED. FRESH WATER PROVIDED. PATIENT DENIES FURTHER NEEDS. CALL LIGHT IN REACH.
--- NOTE | 2023-09-30 07:02 | NUR ---
rechecked bladder retention via bladder scanner-result of >1,007 mls noted. janelle madera in room to place luu catheter. dr serrano updated, telephone order read back to place luu catheter.
--- NOTE | 2023-09-30 07:25 | NUR ---
PT AWAKE AND RESTING IN BED. CALL LIGHT WITHIN REACH, NO REQUESTS AT THIS TIME.
[2023-09-30] MEDS ORDERED: LIDOCAINE 2% VISCOUS 6 ML SYR TOP ONE (07:30)
--- NOTE | 2023-09-30 07:52 | NUR ---
PATIENT IN BED AT THIS TIME. PATIENT REQUESTED COFFEE, TUFTING CREELER PROVIDED PATIENT WITH COFFEE. CALL LIGHT WITHIN REACH, NO FURTHER NEEDS AT THIS TIME.
--- NOTE | 2023-09-30 08:45 | NUR ---
PT RESTING IN BED, STATES IS SLIGHTLY DIZZY AT THIS TIME. CALL LIGHT IN REACH AND SON AT BEDSIDE. DR GRIFFIN AWARE OF CARDIAC PAUSE ON TELEMETRY.
[2023-09-30] MEDS ORDERED: POLYETHYLENE GLYCOL 3350 1 PACKET PO SCH (09:00)
[2023-09-30] MEDS ORDERED: SENNOSIDES/DOCUSATE 1 EA TAB PO SCH (09:00)
--- NOTE | 2023-09-30 09:00 | NUR ---
DR GRIFFIN IN TO VISIT WITH PT AND SON REGARDING ILLNESS AND WANTING TO TRANSFER PT FOR CARDIOLOGY CARE. PT AND SON STATE UNDERSTANDING. PT INSTRUCTED TO LET NURSE KNOW IF SHE EXPERIENCES MORE OF HER "HICCUPS" (HOW SHE STATES HER CARDIAC PAUSES FEEL TO HER) AND IF SHE HAS AND IF HER SYMPTOMS CHANGE OR INCREASE. PT CONTINUES TO DENY SOB OR CHEST PAIN.
--- NOTE | 2023-09-30 09:47 | NUR ---
PATIENT AWAKE, ALERT, VISITING WITH SON. SHE ATE 100% OF BREAKFAST WITH 4 OZ. OF OJ BUT DID NOT DRINK 2% MILK OR THE COFFEE. SHE PREFERS COLD SKIM MILK. ASKED FOR A CUP OF ICE FOR A COLD COFFEE DRINK SO I GOT HER A CUP OF ICE, POURED HER COFFEE OVER THE ICE AND STIRRED IN 2 HALF & HALVES. SHE PREFERS A SANDWICH WITH SOUP OR SALAD FOR A OVERLOCK ELASTIC ATTACHER DINNER. SHE HAS A SMALL APPETITE DUE TO NOT MOVING AROUND MUCH DUE TO BACK PAIN. SHE HAS LOST ABOUT 5-10 LBS OVER THE LAST 2 YEARS PER HER SON. SHE IS ON A REGULAR DIET. FOOD PREFERENCES OBTAINED. NO OTHER NUTRITION INTERVENTION AT THIS TIME. RD WILL FOLLOW UP IN 5 DAYS.
--- NOTE | 2023-09-30 09:58 | NUR ---
CHANGED PT'S BRIEF. PT HAD A SMALL BM SMEAR. ALSO REPOSITIONED PT. PT TOLERATED WELL. SON AT BEDSIDE AND CALL LIGHT WITHIN REACH.
--- NOTE | 2023-09-30 10:19 | NUR ---
SPOKE TO PATIENT ABOUT THE DISCHARGE PLAN. THE PATIENT'S IS SITTING AT BEDSIDE.PATIENT STATES SHE WANTS TO GO HOME WHEN SHE IS DISCHARGED. THE PATIENT HAS FRIENDS AND FAMILY THAT CAN HELP NEEDED. THE PATIENT HAS A WALKER AND A CANE. PATIENT HAS GRAB BARS IN THE BATHROOM. THE PATIENT CAN DO HER OWN ADLS. THE PATIENT DOES NOT HAVE ANY FINANCIAL ISSUES.PATIENT'S WILL DRIVE THE PATIENT NEEDED TO MD APPT. PATIENT IS FEELING BETTER TODAY AND PAIN IS IN BETTER CONTROL.
--- NOTE | 2023-09-30 10:41 | NUR ---
VISITED DURING SPIRITUAL CARE ROUNDS. PT APPEARED TO BE SLEEPING. SON AT BEDSIDE ABSORBED IN PHONE CONVERSATION. DID NOT DISTURB. PROVIDED PRAYER.
[2023-09-30 11:27] LABS: BASOPHILS 0.9 % (0-2); EOSINOPHILS 3.3 % (0-6); HEMATOCRIT 38.8 % (35.0-50.0); HEMOGLOBIN 12.5 g/dL (12.0-18.0); LYMPHOCYTES 18.3 % (24-44); MCH 29.3 (27-36); MCHC 32.1 g/dl (30-36); MCV 91.1 fl (81-99); MONOCYTES 7.7 % (0-12); NEUTROPHILS 69.8 % (39-80); PLATELET COUNT 201 K/uL (140-440); RBC 4.26 M/ul (4.3-5.7); RDW 16.6 (10.5-15.0)
[2023-09-30 11:33] LABS: ANION GAP 9.3 (7-21); BUN/CREATININE RATIO 24.75 (6.0-28.6); CALCIUM 8.5 mg/dL (8.5-10.1); CREATININE, SERUM 1.01 mg/dL (0.55-1.02); POTASSIUM 4.3 mmol/L (3.5-5.1)
--- NOTE | 2023-09-30 11:56 | NUR ---
PT TRANSFERRED TO CCU WHILE AWAITING TRANSFER TO [facility]. SON AT BEDSIDE. REPORT GIVEN TO GRACIA AGEE.
[2023-09-30] MEDS ORDERED: DOPamine 400 MG/D5W 250 ML IV SCH (12:00)
[2023-09-30] MEDS ORDERED: ATROPINE SULFATE 1 MG/10 ML SYR IV SCH (12:00)
--- NOTE | 2023-09-30 12:05 | NUR ---
THE PATIENT HAS BEEN MOVED TO CCU FOR CLOSER OBSERVATION AND POSSIBLE TRANSFER TO ANOTHER HOSPITAL FOR A HIGHER LEVEL OF CARE. CASE MANAGEMENT WILL MONITOR CLOSER.
--- NOTE | 2023-09-30 12:15 | NUR ---
PATIENT ARRIVED TO CCU ROOM 127. PATIENT IN BED WITH HER SON AT THE BEDSIDE. UPDATED ON PLAN OF CARE. NEW IV PLACED FOR DOPAMIN INFUSION. ATROPINE PLACED AT THE BEDSIDE. D.FIB PADS PLACED ON PATIENT D/T PATIENT HAVING INCREASED PAUSES. PATIENT DENIES ANY OTHER NEEDS AT THIS TIME. RADIO TESTER WORKING ON TRANSFER TO HIGHER LEVEL OF CARE FOR CARDIAC FOLLOW-UP.
--- NOTE | 2023-09-30 12:46 | NUR ---
PATIENT STARTED ON DOPAMIN GTT PER ROUTE SALESMAN AND DRIVER RECOMMENDATIONS FROM [facility]. AWAITING RADIO CONTROL CRANE OPERATOR OKAY AND BED SPACE FOR TRANSFER. ROUTE SALESMAN AND DRIVER AT [facility] HAS ACCEPTED PATIENT. PAPERWORK COMPLETED. WILL KEEP PATIENT AND SON UPDATED ON PLANS. PATIENT RESTING COMFORTABLY IN BED AT THIS TIME.
--- NOTE | 2023-09-30 14:00 | NUR ---
PATIENTS SON IN AT THE BEDSIDE. PATIENT RESTING IN BED. ANUEL BRUNO CALLED TO COME PLACE NEW IV. PATIENTS AC IV IS POSITIONAL. PATIENT IS ALERT, BUT EASILY DROWSY. PATIENTS DOPAMINE INFUSION AT 10MCG/KG/MIN. PATIENT TOLERATING WELL. PATIENT REPORTS PAIN IS WELL CONTROLLED AT THIS TIME.
--- NOTE | 2023-09-30 15:21 | NUR ---
DAMION RN IN TO START NEW IV. GOOD BLOOD RETURN NOTED. PATIENT TOLERATED WELL. PER RESAW CARRIAGE OPERATOR PATIENT ACC[facility] HERE [facility] 20 [facility]ES. PATIENT AND HER SON UPDATED. PATIENT RESTING IN BED. ALL BELONGINGS GATHERED.
--- NOTE | 2023-09-30 15:56 | NUR ---
[facility] HERE TO GET PATIENT. REPORT GIVEN TO STAFF AND ALL QUESTIONS ANSWERED. PATIENT BELONGINGS SENT WITH PATIENTS SON. PATIENT ON DOPAMIN 5MCG/KG/MIN ON TRANSFER. NO OTHER QUESTIONS WILL CALL [facility] TO GIVE REPORT.
--- NOTE | 2023-09-30 16:19 | NUR ---
REPORT CALLED TO JOSEY AGEE AT [facility]. UPDATED ON PATIENTS CONDITION, PLAN OF CARE, AND TRANSFER. ALL QUESTIONS ANSWERED. NO OTHER NEEDS AT THIS TIME. CALL BACK NUMBER LEFT FOR FOLLOW-UP QUESTIONS IF NEEDED.
== END 2023-09-30 16:05 | disposition short-term general hospital (02) | DRG 552 ==
LOC: ED 09:24 → MS 18:21 → CCU 09-30 11:55
PROVIDERS: Emergency Medicine; ADMIT Internal Medicine; ATTEND Internal Medicine
DX: M54.50 Low back pain, unspecified (principal); I49.5 Sick sinus syndrome; G89.29 Other chronic pain; I10 Essential (primary) hypertension; I48.91 Unspecified atrial fibrillation; R00.1 Bradycardia, unspecified; M19.90 Unspecified osteoarthritis, unspecified site; I25.10 Atherosclerotic heart disease of native coronary artery without angina pectoris; G25.81 Restless legs syndrome; Z79.01 Long term (current) use of anticoagulants; Z79.899 Other long term (current) drug therapy; Z79.891 Long term (current) use of opiate analgesic; Z79.890 Hormone replacement therapy
CPT/HCPCS: 36415; 80048; 80053; 83735; 85025; 93005; 93010; 96374; 96375; 96376; 97162; 97166; 97530; 99284; A9270; J1170; J1200; J1265; J1885; J2060; J3475; J7040

== ENCOUNTER 2023-11-20 08:47 | Emergency (ER) | payer MEDICARE, OTHER ==
[~2023-11-20] VITALS: Ht 154.9 cm; Wt 55.7 kg
[~2023-11-20 08:47] MED LIST changes: +MELATONIN3 MG PO; +TRAMADOL HCL25 MG PO; +TRAMADOL HCL50 MG PO
[2023-11-20] MEDS ORDERED: COL-RITE100 MG PO (09:15)
[2023-11-20] MEDS ORDERED: LIDOCAINE & ANTACID 35 ML BTL PO ONE (09:15)
[2023-11-20] MEDS ORDERED: GABAPENTIN100 MG PO (09:16)
[2023-11-20] MEDS ORDERED: ELIQUIS5 MG PO (09:16)
[2023-11-20] MEDS ORDERED: HYDROCODON-ACE1 EA10 PO (09:16)
[2023-11-20] MEDS ORDERED: PRAMIPEXOLE0.125 MG PO (09:17)
[2023-11-20] MEDS ORDERED: METOPROLOL SUCC50 MG PO (09:17)
[2023-11-20] MEDS ORDERED: MORPHINE SULFAT30 M6 PO (09:17)
[2023-11-20] MEDS ORDERED: SERTRALINE HCL25 MG PO (09:18)
[2023-11-20] MEDS ORDERED: HYDROCODONE/APAP 10/325 1 TAB PO ONE (09:30)
[2023-11-20 12:40] VITALS: BP 120/91
== END 2023-11-20 12:44 | disposition home or self-care (01) ==
LOC: ED 08:47
DX: M25.551 Pain in right hip (principal); I10 Essential (primary) hypertension; E03.9 Hypothyroidism, unspecified; Z79.01 Long term (current) use of anticoagulants; Z79.899 Other long term (current) drug therapy; Z79.890 Hormone replacement therapy
CPT/HCPCS: 72192; 99284; A9270

== ENCOUNTER 2023-12-27 09:32 | Inpatient (IN) | payer MEDICARE, OTHER ==
[~2023-12-27] VITALS: Ht 154.9 cm; Wt 59.0 kg
[~2023-12-27 09:32] MED LIST changes: +COL-RITE100 MG PO; +ELIQUIS5 MG PO; +GABAPENTIN100 MG PO; +METOPROLOL SUCC50 MG PO; +MORPHINE SULFAT30 M6 PO; +PRAMIPEXOLE0.125 MG PO; +SERTRALINE HCL25 MG PO
[2023-12-27] MEDS ORDERED: HYDROmorphone HCL 1 MG/ML SYR IV ONE ×2 (09:45→10:45)
[2023-12-27] MEDS ORDERED: ondansetron HCL 4 MG/2 ML VIAL IV ONE (09:45)
[2023-12-27] MEDS ORDERED: SODIUM CHLORIDE 0.9% 1,000 ML IV ONE (09:45)
[2023-12-27 09:52] LABS: BASOPHILS 0.4 % (0-2); EOSINOPHILS 0.6 % (0-6); HEMATOCRIT 41.7 % (35.0-50.0); HEMOGLOBIN 13.8 g/dL (12.0-18.0); LYMPHOCYTES 14.1 % (24-44); MCV 90.9 fl (81-99); MONOCYTES 8.1 % (0-12); NEUTROPHILS 76.8 % (39-80); PLATELET COUNT 291 K/uL (140-440); RBC 4.59 M/ul (4.3-5.7); RDW 14.1 (10.5-15.0)
[2023-12-27 10:02] LABS: BILIRUBIN, URINE NEGATIVE (negative); BLOOD/HGB, URINE NEGATIVE (Negative); KETONE, URINE NEGATIVE (Negative); LEUK ESTERASE, URINE NEGATIVE (negative); NITRITE, URINE NEGATIVE (negative); PH, URINE 5.5 (5-7)
[2023-12-27 11:04] LABS: ALBUMIN/GLOBULIN RATIO 1.07 (1.1-2.4); ANION GAP 14.9 (7-21); BILIRUBIN, TOTAL 0.5 ng/dL (0.2-1.0); BUN/CREATININE RATIO 17.56 (6.0-28.6); CALCIUM 8.5 mg/dL (8.5-10.1); CREATININE, SERUM 0.74 mg/dL (0.55-1.02); POTASSIUM 3.9 mmol/L (3.5-5.1); PROTEIN, TOTAL 5.8 g/dL (6.4-8.2)
[2023-12-27] MEDS ORDERED: KETOROLAC TROMETHAMINE 30 MG/ML VIAL IV ONE (11:30)
[2023-12-27] MEDS ORDERED: ONDANSETRON 4 MG TAB ODT SL ONE (12:30)
[2023-12-27] MEDS ORDERED: OXYCODONE/APAP 5/325 TAB PO ONE (12:30)
[2023-12-27] MEDS ORDERED: LIDOCAINE HCL 4% 1 EACH PATCH TD ONE (12:30)
[2023-12-27] MEDS ORDERED: methylPREDNISolone SOD SUCC 125 MG/2 ML VIAL IV ONE (15:00)
[2023-12-27] MEDS ORDERED: BUPROPION XL150 MG PO (15:46)
[2023-12-27] MEDS ORDERED: MORPHINE SULFAT30 M2 PO (15:49)
[2023-12-27] MEDS ORDERED: MELATONIN 3 MG TAB PO PRN (16:00)
[2023-12-27 16:04] VITALS: BP 148/100
--- NOTE | 2023-12-27 16:12 | NUR ---
PT TO THE ROOM VIA [place] AND IS ABLE TO MOVE SELF TO THE BED. PT IS RESTLESS, THOUGH UPBEAT, SHE IS ROLLING THEN NEEDING TO STAND, WANTING TO SIT, THEN BACK TO THE BED TRYING TO GET COMFORTABLE. PT ASSISTED TO MOVE ABOUT IN AN EFFORT TO GET COMFORTABLE MORPHINE ADMINISTERED.
[2023-12-27] MEDS ORDERED: MORPHINE SULFATE 4 MG/ML VIAL IV PRN ×2 (16:15→18:30)
[2023-12-27] MEDS ORDERED: LORazepam 1 MG TAB PO PRN (16:15)
[2023-12-27] MEDS ORDERED: OXYCODONE HCL 5 MG TAB PO PRN (16:15)
[2023-12-27 16:34] VITALS: BP 133/82
--- NOTE | 2023-12-27 16:38 | NUR ---
PT APPEARS MUCH MORE CALM NOW. RESTING ON HER SIDE VISITING ABOUT HER CAREER AT [employer] SHE IS CHEERFUL NOT COMPLAINING AT THIS MOMENT
--- NOTE | 2023-12-27 16:52 | NUR ---
PT AMBULATES THE NIEVES AGAIN STAFF SBA THEN RETURNS TO BED. PT DECLINES CHAIR STATES IT'S UNCOMFORTABLE ON HER BOTTOM. SHE HAS A HEMORRHOID VISIBLE AND STATES IT HURTS WHEN SHE SITS IN HOSPITAL CHAIR DESPITE PILLOW PROVIDED. REMAINS AT BEDSIDE. SOUP ORDERED FOR EVENING MEAL PER PT PREFRENCE.
--- NOTE | 2023-12-27 17:16 | NUR ---
PT SITTING UP IN BED EATING A HAMBURGER NO C/O PAIN.
--- NOTE | 2023-12-27 18:25 | NUR ---
PT SHOWING INCREASED S/SOF PAIN ROLLING AND CRYING DR CHAVEZ INCREASES MORPHINE DOSE AND FREQUENCY. 4 MG ADMINISTERED. BED ALARM IS ON SAFETY MATS ARE DOWN STAFF SITTING / WAITING FOR MEDS TO BE EFFECTIVE
[2023-12-27 18:26] VITALS: BP 130/68
[2023-12-27] MEDS ORDERED: HYDROmorphone HCL 1 MG/ML SYR IV PRN (19:15)
[2023-12-27] MEDS ORDERED: MORPHINE SULFATE 30 MG TABCR PO SCH (19:15)
[2023-12-27] MEDS ORDERED: fentaNYL citrate 100 MCG/2 ML VIAL IV PRN (19:15)
--- NOTE | 2023-12-27 19:26 | NUR ---
REPORT RECEIVED FROM DAY SHIFT RN. PT LYING IN BED ALERT. PT RESTLESS, PULLING LEGS INTO CHEST. ASSISTED TO REPOSITION. NO FURTHER NEEDS. BED ALARM FOR SAFETY. CALL LIGHT IN REACH. WHITE BOARD UPDATED.
[2023-12-27 19:44] VITALS: BP 120/88
--- NOTE | 2023-12-27 19:55 | NUR ---
EVENING ASSESSMENT COMPLETE. PT ALERT AND ORIENTED TO SELF. REPORTS "ALL OVER PAIN" 11/15. SCHEDULED PAIN MEDS ADMIN PER EMAR. DENIES NAUSEA. PT INCONTINENT OF URINE. HUSAM CARE DONE AND CLEAN ATTENDS IN PLACE. 2PA TO REPOSITION IN BED. VS AND I&O OBTAINED. NO FURTHER NEEDS. BED ALARM FOR SAFETY. CALL LIGHT IN REACH.
[2023-12-27] MEDS ORDERED: ACETAMINOPHEN 325 MG TAB PO SCH (20:00)
[2023-12-27] MEDS ORDERED: PRAMIPEXOLE DIHYDROCHLORIDE 1 MG TAB PO SCH (21:00)
[2023-12-27] MEDS ORDERED: LIDOCAINE PATCH REMOVAL 1 EA TD SCH (21:00)
[2023-12-27] MEDS ORDERED: SENNOSIDES 1 TAB PO SCH (21:00)
[2023-12-27] MEDS ORDERED: KETOROLAC TROMETHAMINE 15 MG/ML VIAL IV SCH (21:00)
[2023-12-27] MEDS ORDERED: DOCUSATE SODIUM 100 MG CAP PO SCH (21:00)
[2023-12-27] MEDS ORDERED: GABAPENTIN 100 MG CAP PO SCH (21:00)
[2023-12-27] MEDS ORDERED: TAMSULOSIN HCL 0.4 MG CAP PO SCH (21:00)
--- NOTE | 2023-12-27 21:30 | NUR ---
PT RESTLESS IN BED, PULLING LEGS UP TO CHEST. BED ALARM SOUNDING FREQUENTLY. SCHEDULED MEDS ADMIN PER EMAR. ASSISTED PT TO REPOSITION IN BED. NO FURTHER NEEDS. BED ALARM IN PLACE. PT IN VIEW OF NURSES STATION.
--- NOTE | 2023-12-27 23:18 | NUR ---
PT RESTING IN BED WITH EYES CLOSED IN RELAXED POSITION. RESPIRATIONS EVEN. BED ALARM IN PLACE. CALL LIGHT IN REACH.
[2023-12-28] VITALS (9 sets, daily range): BP systolic 93–122; BP diastolic 56–89
--- NOTE | 2023-12-28 02:15 | NUR ---
PT RESTING WITH EYES CLOSED. AWAKENS TO TOUCH. PT DOZING ON AND OFF DURING CARES. VS AND I&O OBTAINED. PT LEFT IN RELAXED POSITION. BED ALARM FOR SAFETY. PT IN VIEW OF NURSES STATION.
--- NOTE | 2023-12-28 05:33 | NUR ---
LAB IN FOR MORNING DRAW. PT ORIENTED TO SELF ONLY. REPORTS FEELING BETTER AFTER REST. PT INCONTINENT OF URINE. HUSAM CARE DONE. CLEAN ATTENDS IN PLACE. PT ABLE TO ASSIST WITH CARES. OCCASIONAL MOAN/GRIMACE WITH ROLLING IN BED NOTED. PT IN A RELAXED POSITION AT REST. 2PA TO REPOSITION IN BED. NO FURTHER NEEDS. BED ALARM IN PLACE. CALL LIGHT IN REACH.
[2023-12-28 05:39] LABS: BASOPHILS 0.2 % (0-2); EOSINOPHILS 0.1 % (0-6); HEMATOCRIT 35.1 % (35.0-50.0); HEMOGLOBIN 11.6 g/dL (12.0-18.0); LYMPHOCYTES 22.4 % (24-44); MCH 30.1 (27-36); MCHC 33.2 g/dl (30-36); MCV 90.7 fl (81-99); MONOCYTES 6.5 % (0-12); NEUTROPHILS 70.8 % (39-80); PLATELET COUNT 239 K/uL (140-440); RBC 3.87 M/ul (4.3-5.7); RDW 14.3 (10.5-15.0)
[2023-12-28 05:46] LABS: ANION GAP 12.3 (7-21); BUN/CREATININE RATIO 23.94 (6.0-28.6); CALCIUM 8.7 mg/dL (8.5-10.1); CREATININE, SERUM 0.71 mg/dL (0.55-1.02); MAGNESIUM 1.7 mg/dL (1.8-2.4); POTASSIUM 4.3 mmol/L (3.5-5.1)
[2023-12-28] MEDS ORDERED: OXYCODONE HCL 5 MG TAB PO PRN (07:00)
--- NOTE | 2023-12-28 07:17 | NUR ---
REPORT FROM ASAF JUDD RN.
[2023-12-28] MEDS ORDERED: ALEVE220 MG PO (07:46)
[2023-12-28] MEDS ORDERED: NARCAN4 MG NAS (07:49)
[2023-12-28] MEDS ORDERED: MIRALAX119 GM PO (07:51)
--- NOTE | 2023-12-28 07:51 | NUR ---
MED REC COMPLETE
[2023-12-28] MEDS ORDERED: FOLIC ACID 1 MG TAB PO SCH (08:00)
[2023-12-28] MEDS ORDERED: MAGNESIUM SULFATE 2 GM/50 ML BAG IV ONE (08:00)
[2023-12-28] MEDS ORDERED: THIAMINE HCL 100 MG TAB PO SCH (08:00)
[2023-12-28] MEDS ORDERED: ENOXAPARIN SODIUM 40 MG/0.4 ML SYR SUB-Q SCH (09:00)
[2023-12-28] MEDS ORDERED: buPROPion HCL XL 150 MG TAB.XL.24H PO SCH (09:00)
[2023-12-28] MEDS ORDERED: METOPROLOL SUCCINATE 50 MG TABCR PO SCH (09:00)
[2023-12-28] MEDS ORDERED: SERTRALINE HCL 25 MG TAB PO SCH (09:00)
[2023-12-28] MEDS ORDERED: LEVOTHYROXINE SODIUM 50 MCG TAB PO SCH (09:00)
--- NOTE | 2023-12-28 09:08 | NUR ---
MORNING ASSESSMENT IS COMPLETE. PATIENT IS REFUSING BREAKFAST AT THIS TIME. PATIENT DID TAKE HER MORNING MEDICATIONS. PATIENT REPORTS 8/10 SOMATIC PAIN AND WAS GIVEN SCHEDULET OXYCONTIN AND TYLENOL. PATIENT REPORTED THAT SHE WANTS TO GO BACK TO SLEEP. NO OTHER NEEDS AT THIS TIME.
--- NOTE | 2023-12-28 09:20 | NUR ---
Spoke with Sweta. She is pleasantly confused. Asking if we can go to see Estelita Bundy. [place] She denies living at [facility], but states she does want to go home. Pt states she uses a walker and a shower chair. She has difficulty answering questions so I call Annetta the sole rounding machine operator at [facility]. She states pt requires full care and uses a wc most of the time. Pt has problems with her memory and is nearing time to move into their memory care. Pt may return whenever the feels she is ready for DC. They will would like a van transport when pt discharges. They currently use [facility]. Let Annetta know the progress notes show pt will dc in 1-2 days from today.
--- NOTE | 2023-12-28 09:47 | NUR ---
UR CLINICAL REVIEW: 2MN CAROLINE, MEETS INPT MEDICARE INPT 12/27/23 @ 1506 ORDER MATCHES REG NO AUTH REQUIRED PER MEDICARE RULES DC PLAN PENDING PT/OT EVALS AND CASE MANAGEMENT ASSESSMENT.
--- NOTE | 2023-12-28 10:27 | NUR ---
PT NOT AVAILABLE FOR VISIT. PROVIDED PRAYER.
--- NOTE | 2023-12-28 10:28 | NUR ---
PATIENT WOKE UP AND ATE 80% OF BREAKFAST. PT/OT IN TO SEE PATIENT. PATIENT REPORTED NO PAIN PRIOR TO PHYSICAL THERAPY.
--- NOTE | 2023-12-28 10:59 | NUR ---
PATIENT IN CHAIR AT THIS TIME. STENCIL CUTTER MACHINE CHARTED PATIENTS VITALS AND I&O'S. CALL LIGHT WITHIN REACH, NO FUTHER NEEDS AT THIS TIME.
[2023-12-28] MEDS ORDERED: LACTATED RINGER'S 1,000 ML IV ONE (11:15)
--- NOTE | 2023-12-28 11:38 | NUR ---
LR BOLUS IS INFUSING AT THIS TIME. PATIENT IS BACK IN BED, INCONTINENT OF URINE.
[2023-12-28] MEDS ORDERED: PHARMACY RENAL DOSE ADJUSTMENT 1 DOSE MISC PO SCH (12:00)
--- NOTE | 2023-12-28 14:26 | NUR ---
PATIENT GIVEN 650MG OF PO SCHEDULE TYLENOL. AFTERNOON PAIN ASSESSMENT IS COMPLETE. PATIENT IS NOT ABLE TO DEMONSTRATE USE OF NUMBER RATING PAIN SCALE. PATIENT IS 3-4/10 ON FACES PAIN RATING SCALE. PATIENT IS IMMEDIATELY BACK TO SLEEP WITH REGULAR RESPIRATIONS.
--- NOTE | 2023-12-28 16:30 | NUR ---
PATIENT IS RESTING IN BED, DENIES NEEDS.
--- NOTE | 2023-12-28 19:11 | NUR ---
PATIENT IN BED AT THIS TIME. FORKLIFT TRUCK OPERATOR ASSISTED PATIENT FROM CHAIR BACK TO BED. FORKLIFT TRUCK OPERATOR CHARTED VITALS AND I&O'S. CALL LIGHT WITHIN REACH, NO FURTHER NEEDS AT THIS TIME.
--- NOTE | 2023-12-28 19:23 | NUR ---
REPORT RECEIVED FROM DAY SHIFT RN. PT LYING IN BED ALERT. DENIES NEEDS. DINNER TRAY REMOVED. BED ALARM FOR SAFETY. CALL LIGHT IN RECH. WHITE BOARD UPDATED.
--- NOTE | 2023-12-28 20:16 | NUR ---
EVENING ASSESSMENT COMPLETE. PT ALERT AND ORIENTED TO SELF. REPORTS RIGHT HIP/SHOULDER PAIN 06/15. SCHEDULED PAIN MEDS ADMIN PER EMAR. PT INCONTINENT OF URINE. HUSAM CARE DONE AND PUREWICK PLACED. PT ABLE TO ASSIST WITH CARES. ASSISTED TO REPOSITION IN BED. VS AND I&O OBTAINED. PT DENIES QUESTIONS OR CONCERNS. CALL LIGHT IN REACH. BED ALARM FOR SAFETY.
--- NOTE | 2023-12-28 21:38 | NUR ---
PT RESTING WITH EYES CLOSED. AWAKENS EASILY. DENIES PAIN, STATES "I JUST WANT TO GO BACK TO SLEEP." SCHEDULED MEDS ADMIN PER EMAR. PT DENIES FURTHER NEEDS. BED ALARM IN PLACE. CALL LIGHT IN REACH.
--- NOTE | 2023-12-28 22:57 | NUR ---
PT RESTING IN BED WITH EYES CLOSED. RESPIRATIONS EVEN. CALL LIGHT IN REACH. BED ALARM IN PLACE.
--- NOTE | 2023-12-29 01:17 | NUR ---
PT IN BED RESTING. EYES CLOSED. RESPIRATIONS EVEN. PUREWICK PATENT WITH YELLOW URINE. BED ALARM IN PLACE. CALL LIGHT IN REACH.
--- NOTE | 2023-12-29 02:15 | NUR ---
PT RESTING IN BED IN RELAXED POSITION. NO OBVIOUS SIGNS OF PAIN. SCHEDULED TYLENOL HELD AT THIS TIME TO ALLOW PT TO REST.
--- NOTE | 2023-12-29 03:52 | NUR ---
PT RESTING IN BED WITH EYES CLOSED. RESPIRATIONS EVEN. BED ALARM IN PLACE. CALL LIGHT IN REACH.
[2023-12-29 05:21] VITALS: BP 128/73
[2023-12-29 05:35] LABS: BASOPHILS 0.9 % (0-2); EOSINOPHILS 4.3 % (0-6); HEMATOCRIT 33.4 % (35.0-50.0); HEMOGLOBIN 11.1 g/dL (12.0-18.0); LYMPHOCYTES 36.6 % (24-44); MCH 30.4 (27-36); MCHC 33.3 g/dl (30-36); MCV 91.2 fl (81-99); MONOCYTES 7.7 % (0-12); NEUTROPHILS 50.5 % (39-80); PLATELET COUNT 219 K/uL (140-440); RBC 3.66 M/ul (4.3-5.7); RDW 14.3 (10.5-15.0)
[2023-12-29 05:42] LABS: ANION GAP 10.2 (7-21); BUN/CREATININE RATIO 30.48 (6.0-28.6); CALCIUM 8.3 mg/dL (8.5-10.1); CREATININE, SERUM 0.82 mg/dL (0.55-1.02); POTASSIUM 4.2 mmol/L (3.5-5.1)
--- NOTE | 2023-12-29 06:13 | NUR ---
LAB IN FOR MORNING DRAW. VS OBTAINED. SMALL AMOUNT OF URINE IN BRIEF AND PUREWICK CANNISTER. PT UP TO BSC WITH 1PA TO VOID APPROX 50 ML YELLOW URINE. STAFF ASSIST WITH HUSAM CARE. BACK TO BED, BAUDILIO WELL. BLADDER SCANNED FOR 250 ML. PO INTAKE ENCOURAGED. WATER AND CRANBERRY JUICE PROVIDED. ASSISTED TO REPOSITION WITH PILLOWS. NO C/O PAIN AT REST. NO FURTHER NEEDS. BED ALARM FOR SAFETY. CALL LIGHT IN REACH.
--- NOTE | 2023-12-29 07:10 | NUR ---
RECEIVED REPORT FROM ANUEL RON. PT RESTING IN BED WITH EYES CLOSED, CALL LIGHT WITHIN REACH, BED ALARM ON FOR SAFETY.
--- NOTE | 2023-12-29 08:04 | NUR ---
PATIENT IN BED AT THIS TIME. POKER SUPERVISOR WENT INTO PATIENTS ROOM TO DO PATIENT ROUNDINGS. CALL LIGHT WITHIN REACH, NO FURTHER NEEDS AT THIS TIME.
--- NOTE | 2023-12-29 08:30 | NUR ---
Pt was discussed in 8:[address] Christensen and he will dc today.
--- NOTE | 2023-12-29 08:57 | NUR ---
PT AWAKENS TO RN IN ROOM, PT SON AT THE BEDSIDE. PT STATES NO CURRENT NEEDS, CALL LIGHT WITHIN REACH. PT STATES PAIN IS MINIMAL AT THIS TIME. BED ALARM ON FOR SAFETY.
--- NOTE | 2023-12-29 09:00 | NUR ---
Called and spoke with Annetta at [facility]. They are ready for pt to return today. I called and transport can take pt at 11:30. I will fax orders prior to pts dc. Updated Dr. Christensen and he will complete orders.
[2023-12-29] MEDS ORDERED: ALEVE220 MG PO (09:31)
[2023-12-29 09:44] VITALS: BP 119/64
[2023-12-29 09:50] VITALS: BP 119/64
--- NOTE | 2023-12-29 10:05 | NUR ---
PT AWAKE IN BED, FINISHES BREAKFAST. SON, JOLANTA, AT THE BEDSIDE. PT AND SON HAVE QUESTIONS ABOUT POC, QUESTIONS ANSWERED, PT AND SON STATE NO FURTHER QUESTIONS AT THIS TIME. PT STATES PAIN IS CURRENTLY 5/10, STATES SHE HAS HAD A "MUSCLE SPASM FEELING" IN R HIP THIS MORNING AND THAT IT HAS CAUSED AN INCREASE IN HER PAIN. PT TAKES PO MEDICATIONS W/O DIFFICULTY. IV DC'D WNL D/T PT HAVING DC ORDER AND NO OTHER IV MEDICATIONS SCHEDULED. NEW BRIEFS PLACED BY WILLOW ANALYST AT THIS TIME. PT REQUESTS MORE ICE WATER, GIVEN. PT ASSISTED WITH REPOSITIONING BED. PT STATES NO FURTHER NEEDS AT THIS TIME, CALL LIGHT WITHIN REACH.
--- NOTE | 2023-12-29 10:20 | NUR ---
Spoke with pt and her son. Discussed pts return. Son states pt was on HH, but was discharged as she had progressed as far as possible. He feels pt doesn't need to cont. as this causes her increased pain. Pt was dcd from last week per Annetta at [facility].
--- NOTE | 2023-12-29 10:40 | NUR ---
PATIENT IN BED AT THIS TIME. BUSINESS DEVELOPMENT AGENT CHARTED PATIENTS VITALS AND I&O'S. BUSINESS DEVELOPMENT AGENT CHANGED PATIENTS BRIEF AND CHARTED VOIDINGS. CALL LIGHT WITHIN REACH, NO FURTHER NEEDS AT THIS TIME.
[2023-12-29 11:18] VITALS: BP 132/72
--- NOTE | 2023-12-29 11:40 | NUR ---
PT DRESSED IN OWN CLOTHES WITH ASSITANCE FROM RN AND OFFICE ASSISTANT. PT VERBALIZES UNDERSTANDING OF DC INFORMATION PROVIDED, PACKET GIVEN TO TRANSPORT TO [facility]. PT UP TO WHEELCHAIR WITH 1PA. PT LEAVING WITH ALL PERSONAL BELONGINGS FROM ROOM. VSS. PT WHEELED TO FRONT OF BUILDING BY NURSING PERSONEL.
--- NOTE | 2023-12-29 12:30 | NUR ---
Spoke with Krystal from [facility] as she called asking for orders. Per Krystal, pt was not dcd last week from , they had planned on dc this week. I updated to my conversation with pts son, Alfonzo. They will dc this pt. I called Annetta at [facility]. She also feels pt would be less painful without PT. Let her know we will not send orders to resume HH.
== END 2023-12-29 11:25 | DRG 554 ==
LOC: ED 09:32 → MS 15:17
PROVIDERS: Emergency Medicine; ADMIT Student in an Organized Health Care Education/Training Program; ATTEND Student in an Organized Health Care Education/Training Program
DX: M16.51 Unilateral post-traumatic osteoarthritis, right hip (principal); M46.1 Sacroiliitis, not elsewhere classified; I10 Essential (primary) hypertension; G89.29 Other chronic pain; R29.6 Repeated falls; G25.81 Restless legs syndrome; Z79.899 Other long term (current) drug therapy; Z90.710 Acquired absence of both cervix and uterus; F17.210 Nicotine dependence, cigarettes, uncomplicated; F10.10 Alcohol abuse, uncomplicated; R33.9 Retention of urine, unspecified; F39 Unspecified mood [affective] disorder
CPT/HCPCS: 36415; 51798; 70450; 73700; 80048; 80053; 81003; 83735; 85025; 85651; 86140; 97161; 97165; A9270; J1650; J1885; J2270; J2405; J2919; J3475; J7030; J7121

== ENCOUNTER 2024-02-09 08:37 | Emergency (ER) | payer MEDICARE, OTHER ==
[~2024-02-09] VITALS: Ht 154.9 cm; Wt 56.1 kg
[~2024-02-09 08:37] MED LIST changes: +BUPROPION XL150 MG PO; +MIRALAX119 GM PO; +MORPHINE SULFAT30 M2 PO; +NARCAN4 MG NAS
[2024-02-09 10:55] VITALS: BP 125/69
== END 2024-02-09 10:45 | disposition home or self-care (01) ==
LOC: ED 08:37
DX: S51.011A Laceration without foreign body of right elbow, initial encounter (principal); S09.90XA Unspecified injury of head, initial encounter; I10 Essential (primary) hypertension; Z79.890 Hormone replacement therapy; Z79.891 Long term (current) use of opiate analgesic; Z79.899 Other long term (current) drug therapy; W18.11XA Fall from or off toilet without subsequent striking against object, initial encounter
CPT/HCPCS: 70450; 73080; 73502; 99284-25

== ENCOUNTER 2024-04-25 09:52 | Inpatient (IN) | payer MEDICARE, OTHER ==
[~2024-04-25] VITALS: Ht 154.9 cm; Wt 53.4 kg
[2024-04-25] MEDS ORDERED: ondansetron HCL 4 MG/2 ML VIAL IV ONE ×2 (10:30→13:15)
[2024-04-25 10:31] LABS: BILIRUBIN, URINE NEGATIVE (negative); BLOOD/HGB, URINE TRACE-I (Negative); KETONE, URINE TRACE (Negative); LEUK ESTERASE, URINE SMALL (negative); NITRITE, URINE POSITIVE (negative); PH, URINE 5.5 (5-7)
[2024-04-25 10:32] LABS: BASOPHILS 0.5 % (0-2); EOSINOPHILS 1.7 % (0-6); HEMATOCRIT 41.1 % (35.0-50.0); HEMOGLOBIN 13.3 g/dL (12.0-18.0); LYMPHOCYTES 14.6 % (24-44); MCH 29.1 (27-36); MCHC 32.3 g/dl (30-36); MCV 90.1 fl (81-99); MONOCYTES 4.9 % (0-12); NEUTROPHILS 78.3 % (39-80); PLATELET COUNT 241 K/uL (140-440); RBC 4.56 M/ul (4.3-5.7); RDW 15.1 (10.5-15.0)
[2024-04-25 10:39] LABS: RED BLOOD CELLS, URINE 0-1 /hpf (0-5); WHITE BLOOD CELLS, URINE >50 /HPF (0-5)
[2024-04-25 10:40] LABS: BACTERIA, URINE 4+ /hpf (negative); CASTS, URINE NONE SEEN \\lpf; COLLECTION TYPE, URINE CLEAN CATCH; CRYSTALS, URINE NONE SEEN (0-1+)
[2024-04-25 10:41] LABS: EPITHELIAL CELLS, URINE SQUAMOUS 1+ /lpf (0-1+); REFLEX CULTURE, URINE Yes (No)
[2024-04-25] MEDS ORDERED: SODIUM CHLORIDE 0.9% 500 ML IV PRN ×3 (10:45→16:15)
[2024-04-25 10:50] LABS: ALBUMIN 3.5 g/dL (3.4-5.0); ALBUMIN/GLOBULIN RATIO 0.95 (1.1-2.4); ANION GAP 13.3 (7-21); BILIRUBIN, TOTAL 0.6 mg/dL (0.2-1.0); BUN/CREATININE RATIO 20.25 (6.0-28.6); CALCIUM 9.5 mg/dL (8.5-10.1); CREATININE, SERUM 0.79 mg/dL (0.55-1.02); POTASSIUM 4.3 mmol/L (3.5-5.1); PROTEIN, TOTAL 7.2 g/dL (6.4-8.2)
[2024-04-25 11:08] LABS: CORONAVIRUS COVID-19 AG NEGATIVE (NEGATIVE); INFLUENZA A AG NEGATIVE (NEGATIVE); INFLUENZA B AG NEGATIVE (NEGATIVE)
[2024-04-25] MEDS ORDERED: CEFTRIAXONE SODIUM 2 GM in SODIUM CHLORIDE 0.9% 100 ML IV ONE (12:15)
[2024-04-25] MEDS ORDERED: CEFTRIAXONE/SODIUM CHLORIDE 2 GM/100 ML PIGGYBACK IV ONE (12:30)
[2024-04-25] MEDS ORDERED: droPERidol 5 MG/2 ML VIAL IV PRN (15:00)
--- NOTE | 2024-04-25 17:00 | NUR ---
PT REPORT RECIEVED FROM [facility]. PT BROUGHT TO MED/SURGE BY STRETCHER ON RA. PT REPORTS NAUSEA AND RECIEVED INAPSINE (SEE EMAR). PT SON IS AT PT BED SIDE AND CONTACT INFORMATION ADDED TO WHITE BOAD THE SON IS THE PT POA WELL. PT CALL LIGHT IN REACH AND NO CURRENT CONCERNS AT THIS TIME.
[2024-04-25] MEDS ORDERED: HYDROCODONE/ACETA 5/325 TAB PO PRN (17:15)
--- NOTE | 2024-04-25 17:15 | EKG ---
[facility] [address] [facility] [place] [address] Signed Atrial fibrillation Abnormal ECG When compared with ECG of 28-SEP-2023 02:06, Vent. rate has decreased BY 42 BPM Nonspecific T wave abnormality no longer evident in Anterior leads Confirmed by Rea Christensen MD ([id number]) on 04/25/2024 5:15:03 PM Electronically Signed By: REA CHRISTENSEN MD 04/25/24 1715 PATIENT NAME: MARYBEL CAMARENA Electrocardiogram DATE OF : 40 PHYSICIAN: REA CHRISTENSEN MD REPORT #: [id number] REPORT IS CONFIDENTIAL AND NOT TO BE RELEASED WITHOUT AUTHORIZATION
[2024-04-25 17:25] VITALS: BP 142/89
[2024-04-25 18:00] VITALS: BP 125/77
[2024-04-25] MEDS ORDERED: ondansetron HCL 4 MG/2 ML VIAL IV PRN (18:30)
[2024-04-25] MEDS ORDERED: LACTATED RINGER'S 1,000 ML IV SCH (18:30)
[2024-04-25] MEDS ORDERED: ACETAMINOPHEN 325 MG TAB PO PRN (18:30)
[2024-04-25] MEDS ORDERED: LORazepam 2 MG/ML VIAL IV PRN (18:30)
--- NOTE | 2024-04-25 19:27 | NUR ---
RECEIVED REPORT FROM ANUEL MARCANO. PT REPORTS ONGOING SHAKING, WANTS RELIEF PAKO. DAYSHIFT ANUEL CJ JUST MEDICATED PT W/ GABAPENTIN AND REPOSITIONED FOR COMFORT. CALL LIGHT WITHIN REACH.
[2024-04-25 19:51] VITALS: BP 137/72
--- NOTE | 2024-04-25 20:00 | NUR ---
PT CONTINUES TO BE RESTLESS AND ANXIOUS. PRN ATIVAN ADMINISTERED PER EMAR. REPORTS ONGOING RLS PAIN, ROUTINE MS CONTIN ADMINISTERED. PT HAS HEAT PACKS TO BLE. SCD'S TO BLE REMOVED R/T PT PREFERENCE FOR RLS AGITATION. ORIENTED X 4 BUT FORGETFUL. DIFFICULT TO OBTAIN VS R/T RESTLESSNESS AND INABILITY TO REMAIN STILL. LSC, HRIR, BTA. REPORTS LBM 2 DAYS AGO. BLE RESTLESS AND JERKING, DENIES N/T. BLE COOL TO TOUCH, PULSES FAINT. NEW PUREWICK PLACED PREVIOUS ONE WAS DISLODGED. RFA IV INFUSING LR. CALL LIGHT WITHIN REACH. BED ALARM IN PLACE FOR SAFETY.
--- NOTE | 2024-04-25 20:50 | NUR ---
THIS VARNISHER PLASTICOATER HAS BEEN IN PT'S ROOM SEVERAL TIMES IN THE LAST HOUR. PT COMPLAINS OF RESTLESSNESS AND ANXIETY. VARNISHER PLASTICOATER HELP PT SIT UP ON THE SIDE OF THE BED FOR A FEW MINUTES. VARNISHER PLASTICOATER GOT PT BACK IN BED AND APPLIED LOTION TO LEGS. PT STATED THAT SHE WAS MORE COMFORTABLE. VARNISHER PLASTICOATER LEFT PT WITH ALARM ON AND CALL LIGHT WITHIN REACH.
[2024-04-25 20:52] VITALS: BP 137/72
[2024-04-25] MEDS ORDERED: POLYETHYLENE GLYCOL 3350 1 PACKET PO SCH (21:00)
[2024-04-25] MEDS ORDERED: GABAPENTIN 100 MG CAP PO SCH (21:00)
[2024-04-25] MEDS ORDERED: POLYETHYLENE GLYCOL 3350 BOTTLE PO SCH (21:00)
[2024-04-25] MEDS ORDERED: PRAMIPEXOLE DIHYDROCHLORIDE 0.25 MG TAB PO SCH (21:00)
[2024-04-25] MEDS ORDERED: SENNOSIDES 1 TAB PO SCH (21:00)
[2024-04-25] MEDS ORDERED: MORPHINE SULFATE 30 MG TABCR PO SCH (21:00)
[2024-04-25] MEDS ORDERED: MELATONIN 3 MG TAB PO PRN (21:00)
--- NOTE | 2024-04-25 21:53 | NUR ---
PT SITTING EOB, IV OUT. PT CONTINUES TO BE RESTLESS. ASSISTED BACK TO BED BY FARM MANAGEMENT TEACHER. POULTRY FARM LABORER IN ATTEMPTING TO PLACE NEW IV SITE.
--- NOTE | 2024-04-25 22:07 | NUR ---
PRN NORCO ADMINISTERED PER EMAR R/T C/O 12/15 BLE SPASMS. PT REMAINS RESTLESS AND BLE JERKING. CALL LIGHT WITHIN REACH AND BED ALARM IN PLACE.
--- NOTE | 2024-04-25 23:16 | NUR ---
PT STILL RESTLESS, REPOSITIONING IN BED FREQUENTLY. BED ALARM IN PLACE FOR SAFETY.
--- NOTE | 2024-04-25 23:43 | NUR ---
PT SLIGHTLY LESS RESTLESS, BUT STILL SETTING OFF BED ALARM FREQUENTLY W/ REPOSITIONING. PRN MELATONIN GIVEN. PT STILL SIPPING ON GATORADE AT BEDSIDE.
[2024-04-26] VITALS (15 sets, daily range): BP systolic 94–144; BP diastolic 52–97
--- NOTE | 2024-04-26 00:15 | NUR ---
THIS MANAGER MONITORING HAS BEEN RESPONDED TO PT'S BED ALARM EVERY 5 TO 10 MINUTES FOR THE LAST HOUR. PT COMPLAINS OF RESTLESSNESS AND NOT BEING COMFORTABLE. MANAGER MONITORING HAS HELPED PT REPOSITION IN BED MANY TIMES AND SIT ON THE SIDE OF THE BED. INTERVENTIONS SEEM TO BE INEFFECTIVE.
--- NOTE | 2024-04-26 00:29 | NUR ---
PT STILL COMPLAINS OF BLE RLS PAIN. IS CONTINUOUSLY THRASHING AROUND IN BED AND AGGRESSIVELY REPOSITIONING SELF. MEDICATED W/ PRN IV ATIVAN PER EMAR.
--- NOTE | 2024-04-26 00:58 | NUR ---
PT STOOD EOB W/ 2 ASSIST AND FWW. MARCHED IN PLACE MULTIPLE TIMES. ONGOING RLS SYMPTOMS.
[2024-04-26] MEDS ORDERED: PRAMIPEXOLE DIHYDROCHLORIDE 0.25 MG TAB PO ONE (01:45)
--- NOTE | 2024-04-26 01:45 | NUR ---
DR. CHAVEZ NOTIFIED OF PT'S ONGOING RESTLESSNESS AND REPORTS OF PAIN. ORDERED ADD'L DOSE OF HOME MIRAPEX. MIRAPEX ADMINISTERED.
--- NOTE | 2024-04-26 02:00 | NUR ---
PT MOVED TO ROOM 120 VIA W/C FOR CLOSER OBSERVATION FROM NURSES STATION. SITTER AT BEDSIDE FOR SAFETY. PT USED BSC W/O SUCCESS.
--- NOTE | 2024-04-26 03:15 | NUR ---
CELSA REPORTS PT HAD BM VIA BSC. PT REMAINS RESTLESS.
--- NOTE | 2024-04-26 04:00 | NUR ---
CHARGE NURSE REPORTS PT UNABLE TO VOID VIA BSC, BLADDERSCAN IS [id number]. SITTER REMAINS AT BEDSIDE.
--- NOTE | 2024-04-26 04:52 | NUR ---
PT INC OF URINE. PVR 15MLS. PT STILL REPORTS SOME BLADDER DISCOMFORT. PT STILL WITH JERKING BODY MOVEMENTS AND RESTLESSNESS.
[2024-04-26 05:28] LABS: BASOPHILS 0.4 % (0-2); EOSINOPHILS 0.7 % (0-6); HEMATOCRIT 39.4 % (35.0-50.0); HEMOGLOBIN 13.2 g/dL (12.0-18.0); LYMPHOCYTES 13.2 % (24-44); MCH 29.7 (27-36); MCHC 33.5 g/dl (30-36); MCV 88.6 fl (81-99); MONOCYTES 7.4 % (0-12); NEUTROPHILS 78.3 % (39-80); PLATELET COUNT 278 K/uL (140-440); RBC 4.45 M/ul (4.3-5.7)
[2024-04-26 05:37] LABS: BUN/CREATININE RATIO 18.07 (6.0-28.6); CALCIUM 9.2 mg/dL (8.5-10.1); CREATININE, SERUM 0.83 mg/dL (0.55-1.02); MAGNESIUM 1.3 mg/dL (1.8-2.4)
--- NOTE | 2024-04-26 05:55 | NUR ---
PT AWAKE, LESS RESTLESS. SITTER AT BEDSIDE FOR SAFETY. PT ASKS REPEATEDLY "WJAT SHOULD I DO". NEW BAG LR HUNG. SKIN TO KNEES REDDENED.
--- NOTE | 2024-04-26 07:29 | NUR ---
Pt resting in bed with sitter and son at bedside. Pt restless, oriented only to self. Pt repositioned for comfort.
--- NOTE | 2024-04-26 07:32 | NUR ---
PT CURRENTLY RESTING IN BED, 1:[address] FOR PATIENT SAFETY SHE IS VERY RESTLESS. SON IS PRESENT IN THE ROOM THIS MORNING. PT C/O (R) HIP/LEG PAIN, SON INDICATES WHEN HER RLS GETS OUT OF HAND IT FLARES UP HER LBP AND CREATES MORE OF ISSUES GETTING COMFORTABLE. IV FLUIDS INFUSING AT THIS TIME. WILL PROVIDE PATIENT HER MORNING MEDS NOW TO SEE IF SHE CAN GET SOME COMFORT. WARM PACK REQUESTED JUST NOW BY PATIENT AND PAYROLL DIRECTOR PROVIDING. ALL PT CARE NEEDS MET CURRENTLY. RECEIVED REPORT FROM DAVID FIGUEROA.
[2024-04-26] MEDS ORDERED: CEFTRIAXONE SODIUM 1 GM VIAL IV ONE (07:37)
--- NOTE | 2024-04-26 08:27 | NUR ---
ATTEMPTED TO ASSIST PT WITH BREAKFAST, PT TOOK 2 BITES AND THEN DECLINED. PT REPOSITIONED FOR COMFORT. SON AND SITTER IN ROOM.
[2024-04-26] MEDS ORDERED: LEVOTHYROXINE SODIUM 50 MCG TAB PO SCH (09:00)
[2024-04-26] MEDS ORDERED: MAGNESIUM SULFATE 2 GM/50 ML BAG IV SCH (09:00)
[2024-04-26] MEDS ORDERED: ENOXAPARIN SODIUM 40 MG/0.4 ML SYR SUB-Q SCH (09:00)
[2024-04-26] MEDS ORDERED: METOPROLOL SUCCINATE 50 MG TABCR PO SCH (09:00)
[2024-04-26] MEDS ORDERED: CEFTRIAXONE SODIUM 1 GM in SODIUM CHLORIDE 0.9% 100 ML IV SCH (09:00)
[2024-04-26] MEDS ORDERED: buPROPion HCL XL 150 MG TAB.XL.24H PO SCH (09:00)
[2024-04-26] MEDS ORDERED: SERTRALINE HCL 25 MG TAB PO SCH (09:00)
--- NOTE | 2024-04-26 09:47 | NUR ---
PT RESTING IN BED WITH EYES CLOSED AND RESPIRATIONS EVEN AND UNLABORED. PT APPEARS COMFORTABLE, NO SIGNS OF DISCOMFORT OR IRRITABILITY NOTED AT THIS TIME. SON AND SITTER AT BEDSIDE.
[2024-04-26] MEDS ORDERED: ALEVE220 M1 PO (10:26)
--- NOTE | 2024-04-26 10:27 | NUR ---
MD WAS INFORMED OF +MEWS SCORE, INFORMED WHAT EXACTLY IS SCORING. HE IS AWARE, IV FLUIDS INFUSING. MD ALSO INFORMED OF SON CONCERN ABOUT HER PAIN MGMT WITH INCREASED RLS SYMPTOMS. MD TO SEE PATIENT AT THIS TIME, SON PRESENT IN THE ROOM. PATIENT IS CURRENTLY/FINALLY SLEEPING AND RESTING. 1:[address] STILL[address]
--- NOTE | 2024-04-26 11:05 | NUR ---
UR CLINICAL REVIEW: 2 MN FOR VERSALUS- PER FILLING MACHINE OPERATOR MEETS INPT CRITERIA FOR UTI WITH NEED FOR IV ABX. MEDICARE INPT 04/25/24 @ 1643 ORDER MATCHES REG NO AUTH REQUIRED PER MEDICARE GUIDELINES DISCHARGE TO HOME WHEN STABLE. PENDING URINE CULTURE RESULTS.
[2024-04-26] MEDS ORDERED: PHARMACY RENAL DOSE ADJUSTMENT 1 DOSE MISC PO SCH (12:00)
--- NOTE | 2024-04-26 12:03 | NUR ---
PT RESTING IN BED, EYES SHUT, SLEEPING AT THIS TIME. DAUGHTER PRESENT AT BEDSIDE AT THIS TIME, SHE REPORTS PATIENT HAS SOME FACIAL GRIMANCES BUT IS TURNING IN BED, NOT RESTLESS LIKE SHE WAS THROUGHOUT THE NIGHT/MORNING. PT ALLOWED TO SLEEP AT THIS TIME, DID NOT AWAKEN FOR CARES/NEEDS. WILL CONTINUE TO MONITOR AND AWAKEN PATIENT FOR PAIN MEDS WHEN NEEDED. CALL LIGHT WITHIN REACH, NO FURTHER NEEDS AT THIS TIME.
--- NOTE | 2024-04-26 13:26 | NUR ---
PATIENT AWAKE, SAT PATIENT UP IN BED TO HELP EAT LUNCH. PATIENT ATE ONE BITE OF ROAST BEEF AND THEN BECAME AGITATED. NEEDED THE BLANKETS OFF OF HER AND TO LAY FLAT. PATIENT INDICATED THAT SHE DID NOT WANT ANY FOOD. PATIENT SITTER IN ROOM WITH PATIENT.
--- NOTE | 2024-04-26 13:46 | NUR ---
ATTEMPT TO ASSESS PATIENT. SHE IS DISORIENTED AND UNABLE TO ACCURATELY ANSWER QUESTIONS. SPOKE WITH SUSANA AT [facility]. PATIENT IS INDEPENDENT AT BASELINE WITH WALKER AND A WHEELCHAIR AT TIMES. SHE IS OCCASIONALLY INCONTINENT OF URINE. SHE DOES HAVE PERIODS OF CONFUSION NOTED INTERMITTENTLY. PLAN TO RETURN TO [facility] WHEN MEDICALLY READY.
--- NOTE | 2024-04-26 13:59 | NUR ---
PATIENT IS IN BED AT THIS TIME, RESTING, NOT WANTING TO EAT OR DRINK MUCH. COVERSTITCH MACHINE OPERATOR CHARTED VITALS AND I&O'S, NOTHING ELSE NEEDED AT THIS TIME.
--- NOTE | 2024-04-26 15:05 | NUR ---
PT DAUGHTER AT BEDSIDE, PT JUST AWAKENS. PT SEEMS ALITTLE MORE ALERT, DAUGHTER PRESENT AND REORIENTING HER TO LOCATION. SHE STATES SHE JUST IS NOT AWAKE YET. PT ASSISTED WITH 2PA/FWW UP TO CHAIR, FRESH ICE WATER AND WARM BLANKET PROVIDED TO PATIENT. CALL LIGHT WITHIN REACH. PT WAS UP IN CHAIR ABOUT 5 MINUTES WHEN CALL LIGHT WAS PLACED ON, PT REQUESTING TO GET BACK IN BED AT THIS TIME. DAUGHTER INDICATES PT HAS DIFFICULT TIME SITTING UP DUE TO THE BACK PAIN. 2PA/FWW BACK TO BED, ALL PT CARE NEEDS MET, PILLOW PLACED BEHIND BACK, PT LAYING ON (L) SIDE AT THIS TIME. CALL LIGHT WITHIN REACH, BED ALARM IN PLACE. DAUGHTER REMAINS AT BEDSIDE.
--- NOTE | 2024-04-26 15:48 | NUR ---
MD INQUIRING ABOUT PATIENT, INFORMED SHE WAS AWAKE, UP TO CHAIR, ONLY TOLERATED FOR ABOUT 5 MINUTES. MD IS TO COME VISIT WITH PATIENT, INFORMED DAUGHTER IS PRESENT AT BEDSIDE.
--- NOTE | 2024-04-26 17:56 | NUR ---
PATIENT IN BED RESTING AT THIS TIME. VITALS AND I&O'S DONE AND CHARTED. FAMILY LEFT, PATIENT SCREW MACHINE OPERATOR SINGLE SPINDLE NOW IN ROOM. CALL LIGHT IN REACH. NO FURTHER NEEDS AT THIS TIME.
--- NOTE | 2024-04-26 18:01 | NUR ---
PT ASSISTED BACK TO BED BY SUPERVISOR BRINE, PT RESTING IN BED WATCHING TV. SITTER IN PLACE FAMILY HAS LEFT. PT REPORTS IMPROVED PAIN 2/10 WITH PRN MEDS. PT IS AWAKE AND FEELING ALOT BETTER, SHE IS NOT RESTLESS SHE WAS LASTNIGHT, ENCOURAGE PATIENT TO REMAIN AWAKE FOR THE REST OF THE EVENING. ALL PT CARE NEEDS MET, CALL LIGHT WITHIN REACH.
--- NOTE | 2024-04-26 19:41 | NUR ---
RECEIVED REPORT FROM ANUEL ZAVALETA. PT ASLEEP IN BED, APPEARS COMFORTABLE. 1:[address]
--- NOTE | 2024-04-26 21:13 | NUR ---
RECORD FILING CLERK OBTAINED VITALS AND I&O. PT STATES NO NEEDS AT THIS TIME. CALL LIGHT WITHIN REACH AND SITTER IN ROOM.
--- NOTE | 2024-04-26 21:30 | NUR ---
PT RESTING QUIETLY, MINIMAL BLE MOVEMENT NOTED. AWAKENED TO VOICE. DROWSY. ORIENTED X [address] 1:[address] LSC[address] HRIR. BTA. LBM TODAY. INTERMITTENT URINARY INC. UO ODOROUS. SL LFA WNL. BLE COOL, PPP WEAK. CAP REFILL > 3 SECS. DENIES N/T. PT TOOK HS MEDS W/O DIFFICULTY. ENC PO INTAKE. CALL LIGHT WITHIN REACH.
--- NOTE | 2024-04-26 23:21 | NUR ---
PT SLEEPING SOUNDLY. APPEARS COMFORTABLE. SITTER AT BEDSIDE FOR SAFETY.
[2024-04-27] VITALS (9 sets, daily range): BP systolic 98–135; BP diastolic 59–86
--- NOTE | 2024-04-27 01:07 | NUR ---
PT SLEEPING SOUNDLY. APPEARS COMFORTABLE. SITTER AT BEDSIDE.
--- NOTE | 2024-04-27 03:07 | NUR ---
PT SLEEPING SOUNDLY, APPEARS COMFORTABLE. SITTER AT BEDSIDE.
--- NOTE | 2024-04-27 05:03 | NUR ---
PT AWAKE, WANTING TO GET OOB. PT ASSISTED TO EOB W/ 1 ASSIST. PT DISORIENTED AND IRRITABLE. REORIENTED. SITTER AT BEDSIDE. FOR SAFETY.
--- NOTE | 2024-04-27 05:30 | NUR ---
PT AWAKE, REPORTS RLE PAIN, MEDICATED W/ PRN NORCO. PT NOTABLY ANXIOUS, STATES RLE WON'T MOVE BUT RLE IS QUITE OBVIOUSLY MOVING. PT DID ROM EXERCISES TO RIGHT FOOT AND ANKLE AND LIFTED RLE OFF BED. PT REASSURED. REORIENTED TO SITUATION. SITTER REMAINS AT BEDSIDE.
[2024-04-27 05:32] LABS: BASOPHILS 1.2 % (0-2); EOSINOPHILS 4.6 % (0-6); HEMATOCRIT 33.9 % (35.0-50.0); HEMOGLOBIN 11.5 g/dL (12.0-18.0); LYMPHOCYTES 34.4 % (24-44); MCV 88.3 fl (81-99); MONOCYTES 7.6 % (0-12); NEUTROPHILS 52.2 % (39-80); PLATELET COUNT 225 K/uL (140-440); RBC 3.84 M/ul (4.3-5.7); RDW 14.9 (10.5-15.0)
[2024-04-27 05:46] LABS: ANION GAP 9.6 (7-21); BUN/CREATININE RATIO 23.72 (6.0-28.6); CALCIUM 8.5 mg/dL (8.5-10.1); CREATININE, SERUM 0.59 mg/dL (0.55-1.02); MAGNESIUM 1.9 mg/dL (1.8-2.4); POTASSIUM 3.6 mmol/L (3.5-5.1)
--- NOTE | 2024-04-27 06:29 | NUR ---
CONTENT CHECKER OBTAINED VITALS AND I&O. THIS CONTENT CHECKER AND ANUEL EAST CHANGED PT BRIEF. PT INCONT OF STOOL AND URINE. PT GIVEN WARM BLANKET AND ICE WATER REFILLED. PT STATES NO NEEDS AT THIS TIME. CALL LIGHT WITHIN REACH AND SITTER IN ROOM.
--- NOTE | 2024-04-27 07:25 | NUR ---
REPORT REC'D FROM ANUEL LEVINE. PT SON INTO ROOM
[2024-04-27] MEDS ORDERED: CEFTRIAXONE SODIUM 1 GM VIAL IV ONE (07:47)
--- NOTE | 2024-04-27 09:11 | NUR ---
RN IN TO PROVIDE MEDICATIONS. PT SLEEPING IN BED, SON AT BEDSIDE. EASILY AROUSE. PT ORIENTED X2, PLEASANT AND COOPERATIVE WITH CARE. HRR, LS CLEAR T/O DIMINSHED TO BASES BILATERALLY. ABD HYPOACTIVE, PT DENIES NAUSEA. DEPENDS ON FOR INCONTINENCE OF URINE. NO EDEMA NOTED, PULSES WNL. R THIGH NOTED TO HAVE RED SQUIGGLY RASH, INTERMITTENT ITCHING REPORTED. DR. CHAVEZ NOTIED. IV L FA 22G FLUSHED WITH 10ML NS, PATENT, NO S&S OF INFILTRATION OR REDNESS. PT OOB TO CHAIR WITH PT/OT. CHAIR LOCKED, CHAIR ALARM IN PLACE, CALL GRIFFIN IN REACH. PT REPORTS 4/10 PAIN, PROVIDED SCHEDULED MS CONTIN. REPORT GIVEN TO MARGE AGEE
--- NOTE | 2024-04-27 10:05 | NUR ---
Patient returned to bed after sitting in chair for breakfast. A warm blanket was given.
--- NOTE | 2024-04-27 12:00 | NUR ---
REDNESS TO R THIGH OUTLINED, IT IS NOTED TO HAVE DECREASED SINCE THIS AM. PT IS RESTING IN BED. SHE REPORTS HER PAIN IS WELL CONTROLLED, RATING IT A 3/10 AND SMILING AT THIS RN. PT CLOSES HER EYES AND REPORTS "I AM JUST GOING TO SLEEP FOR AWHILE, YOU DO WHATEVER." ASSESSMENT COMPLETE. PT HAS BRIEF IN PLACE, APPEARS RELAXED AND COMFORTABLE. 1:1 SITTER AT BEDSIDE. NO OTHER REQUESTS AT THIS TIME, CALL LIGHT IN REACH.
--- NOTE | 2024-04-27 12:12 | NUR ---
1:1 SITTER DISMISSED AT THIS TIME PER SHIPPER/RECEIVER AND SEARCH ENGINE OPTIMIZER. BED ALARM ON, BED IN LOWEST POSITION. PT RESTING WITH EYES CLOSED, RR EVEN AND UNLABORED.
--- NOTE | 2024-04-27 12:15 | NUR ---
REVIEWED WITH PRIMARY RN, AT THIS TIME PATIENT SLEEPING, HAS NOT BEEN OVERLY IMPUSLIVE. SITTER HAS BEEN DISCONTINUED AT THIS TIME. GASTROENTEROLOGY NURSE INFORMED.
--- NOTE | 2024-04-27 13:33 | NUR ---
PT ASSISTED TO REPOSITION IN BED WITH JUAN CARLOS WYNN. PT REMAINS RESTING IN BED AT THIS TIME, BED ALARM ON, BED IN LOWEST POSITION. CALL LIGHT IN REACH.
--- NOTE | 2024-04-27 13:55 | NUR ---
INTO SEE PATIENT. PATIENT STATES "MY HEAD IS CROOKED AND JUST CALL THE RESTAURANT." WILL FAX RECORDS TO [facility] WHERE SHE RESIDES.
--- NOTE | 2024-04-27 13:55 | NUR ---
Patient repositioned in bed. Brief was checked and okay. Patient had refused lunch but agreed to an ensure protein. Call light and personal items in reach.
--- NOTE | 2024-04-27 15:39 | NUR ---
PT WAKENS IN BED, CALLING OUT, STATES SHE IS FEARFUL. RE-ORIENTED PT AND ENSURED SAFETY. PT TAKES A FEW MINUTES TO CALM DOWN BUT VERBALIZES UNDERSTANDING AND APPRECIATION FOR FEELING SAFE. PT COMPLAINS OF HEADACHE PAIN, 6/10, AND DYSURIA. MD NOTIFIED OF DYSURIA, MD GIVES VERBAL ORDER FOR AZO VERIFIED WITH READBACK. ORDER PLACED. PT RESTING IN BED WATCHING TELEVISION AT THIS TIME, NO OTHER REQUESTS, CALL LIGHT IN REACH, BED ALARM ON.
[2024-04-27] MEDS ORDERED: PHENAZOPYRIDINE HCL 100 MG TAB PO PRN (15:45)
--- NOTE | 2024-04-27 15:53 | NUR ---
Brief changed, kings care done, and purewick placed at 1550.
--- NOTE | 2024-04-27 16:45 | NUR ---
PT IV FLUSHES WNL. PT RESTING IN BED, RESPONDS WHEN ADDRESSED. REPORTS SHE FEELS "VERY COMFORTABLE HERE". NO COMPLAINTS OF PAIN OR DISCOMFORT. NO OTHER REQUESTS, CALL LIGHT IN REACH, BED ALARM ON, BED IN LOWEST POSITION.
--- NOTE | 2024-04-27 17:39 | NUR ---
PT ASSISTED TO REPOSITION IN BED, HOB ELEVATED, SUPPER TRAY BEFORE HER. PT HAS TWO VISITORS PRESENT AT THIS TIME AND IS CONVERSING PLEASANTLY. PT NOW ORIENTED TO PLACE AND EVENT, STILL UNSURE OF DATE - "SEPTEMBER I THINK?" WHEN ASKED FOR MONTH. PT RE-ORIENTED TO DATE, VERBALIZES UNDERSTANDING. PT BEGINS EATING SUPPER, NO OTHER REQUESTS AT THIS TIME, CALL LIGHT IN REACH, BED ALARM ON, BED IN LOWEST POSITION.
--- NOTE | 2024-04-27 18:36 | NUR ---
PT RESTING IN BED WITH EYES CLOSED, RESPONDS WHEN THIS RN ENTERS ROOM. PT STATES "I FEEL VERY COMFORTABLE". NO REQUESTS AT THIS TIME, CALL LIGHT IN REACH.
--- NOTE | 2024-04-27 18:47 | NUR ---
Patient's BP was low, retaken a second time on the opposite arm with similar results. RN Selin notified. BP was later rechecked and was okayed by nurse.
--- NOTE | 2024-04-27 19:42 | NUR ---
RECEIVED REPORT FROM ANUEL MORA. PT AWAKE, VERY CONFUSED, DIFFICULT TO REORIENT. BED ALARM IN PLACE.
--- NOTE | 2024-04-27 20:00 | NUR ---
PT AWAKE, DROWSY. PT IS DISORIENTED X 3, PERSEVERATING ON CRISTY. DIFFICULT TO REORIENT. BED ALARM IN PLACE FOR SAFETY. DENIES PAIN. LSC. HRIR. BTA. INC BM. PUREWICK IN PLACE-UO GARCIA, ALSO HAS DISPOSIBLE BRIEF IN PLACE. LFA SL WNL. PT REPOSITIONS SELF FREQUENTLY IN BED. FRESH ICE WATER PROVIDED, ENC PO INTAKE. CALL LIGHT WITHIN REACH.
--- NOTE | 2024-04-27 20:29 | NUR ---
PT ICONT OF STOOL. DISTRICT AGENT AND JOURNALISM INTERN CHANGED PT BRIEF, CHUCKS PAD, AND PUREWICK. DISTRICT AGENT OBTAINED AND DOCUMENTED VITALS AND I&O. PT STATES NO FURTHER NEEDS AT THIS TIME. CALL LIGHT WITHIN REACH AND BED ALARM ON.
--- NOTE | 2024-04-27 22:15 | NUR ---
SLEEPING SOUNDLY. APPEARS COMFORTABLE. BED ALARM IN PLACE.
[2024-04-28] VITALS (8 sets, daily range): BP systolic 119–144; BP diastolic 65–101
--- NOTE | 2024-04-28 00:46 | NUR ---
PT SLEEPING SOUNDLY. APPEARS COMFORTABLE.
--- NOTE | 2024-04-28 02:43 | NUR ---
PT SLEEPING SOUNDLY. APPEARS COMFORTABLE.
[2024-04-28 05:22] LABS: BASOPHILS 1.1 % (0-2); EOSINOPHILS 4.2 % (0-6); HEMATOCRIT 37.6 % (35.0-50.0); HEMOGLOBIN 12.5 g/dL (12.0-18.0); LYMPHOCYTES 32.4 % (24-44); MCH 29.7 (27-36); MCHC 33.2 g/dl (30-36); MCV 89.4 fl (81-99); MONOCYTES 8.3 % (0-12); PLATELET COUNT 238 K/uL (140-440); RDW 14.8 (10.5-15.0)
[2024-04-28 05:37] LABS: ANION GAP 9.4 (7-21); BUN/CREATININE RATIO 18.64 (6.0-28.6); CALCIUM 8.7 mg/dL (8.5-10.1); CREATININE, SERUM 0.59 mg/dL (0.55-1.02); MAGNESIUM 1.5 mg/dL (1.8-2.4); POTASSIUM 3.4 mmol/L (3.5-5.1)
--- NOTE | 2024-04-28 05:50 | NUR ---
PT AWAKE, PLEASANT AND COOPERATIVE BUT DROWSY. ORIENTED X 2 ONLY. DENIES ANY NEEDS. BED ALARM IN PLACE.
--- NOTE | 2024-04-28 06:30 | NUR ---
MACHINE PAINT MIXER OBTAINED VITALS AND I&O. PT STATES NO NEEDS AT THIS TIME. CALL LIGHT WITHIN REACH AND BED ALARM ON.
--- NOTE | 2024-04-28 07:23 | NUR ---
REPORT RECEIVED FROM ANUEL FIGUEROA. PT HAS SON AT BEDSIDE. SON UPDATED ON PLAN OF CARE, AGREEABLE TO BRINGING PTs PERSONAL WHEELCHAIR IN FOR PHYSICAL THERAPY TO USE. ILA, PHYSICAL THERAPY, NOTIFIED OF THIS. FRESH ICE WATER PROVIDED BY JUAN CARLOS WYNN. NO OTHER REQUESTS, CALL LIGHT IN REACH.
[2024-04-28] MEDS ORDERED: CEFTRIAXONE SODIUM 1 GM VIAL IV ONE (08:34)
--- NOTE | 2024-04-28 08:43 | NUR ---
Patient is sitting up in their chair to eat breakfast. Bed linens were changed. Freda care and purewick changed at 0830. Chair alarm activated. Patient brushed their hair and washed their face. Call light and personal items are within reach.
[2024-04-28] MEDS ORDERED: POTASSIUM CHLORIDE 10 MEQ TABCR PO ONE (09:00)
[2024-04-28] MEDS ORDERED: MAGNESIUM SULFATE 2 GM/50 ML BAG IV SCH (09:00)
[2024-04-28] MEDS ORDERED: MICONAZOLE NITRATE 1 EA BTL TOP SCH (09:21)
--- NOTE | 2024-04-28 09:21 | NUR ---
PATIENT SITTING IN CHAIR EATING BREAKFAST. PATIENT EXPRESSED GRATITUDE TOWARDS [facility]. SHE IS FEELING MUCH BETTER TODAY. LET THE PATIENT KNOW IF SHE DOES DISCHARGE TODAY WE CAN GET HER A TAXI. NO FUTHER CM NEEDS.
--- NOTE | 2024-04-28 09:36 | NUR ---
MEDICATIONS ADMINISTERED BY SN BARILLAS WITH HER SHIPPING SPECIALIST DESIREE ROSALES RN, SEE MAR. ASSESSMENT COMPLETE. PT IS UP IN RECLINER WITH BLANKETS ON HER LAP, FINISHING BREAKFAST FROM [facility] BROUGHT TO HER BY HER SON. HEART TONES IRREGULAR, PT HAS NO COMPLAINTS OF SOB OR CHEST PAIN. PT BOWEL TONES ARE HYPERACTIVE IN ALL QUADRANTS, IT HAS BEEN REPORTED TO THIS RN THAT PT HAS HAD MULTIPLE EPISODES OF LOOSE STOOLS SINCE LAST NIGHT. PTs SCHEDULED MIRALAX HELD, SEE MAR. IV IN PTs L FOREARM IS FLUSHED BY SN NARGIS. PT IS CONVERSING PLEASANTLY AND REPORTS THAT SHE IS ENJOYING ALL OF OUR ATTENTION. PT VOICES COMPLAINTS OF PAIN UNDER HER R BREAST. AREAS OF REDNESS NOTED UNDER BILAT BREASTS. NIO PLACED FOR DESENEX POWDER. PT EXPRESSES CONCERNS REGARDING HER HOME WHEREIN "WE HAVE A SHARED SHOWER AND I AM UNCOMFORTABLE BECAUSE A NAKED MAN IS IN THERE WITH ME". THIS RN SITS BESIDE PT TO ASK CLARIFYING QUESTIONS. PT FURTHER EXPLAINS "THE NAKED MAN HELPS ME TO SHOWER. WELL, HEs NOT NAKED, HE HAS SHORTS AND A SHIRT ON AND HEs BEHIND THIS LITTLE WALL. HE HELPS ME IN THE SHOWER." FURTHER CLARIFICATION REVEALED THAT THE PT SOMETIMES HAS A MALE CAREGIVER WHO ASSISTS HER IN SHOWERING AND THIS MADE HER UNCOMFORTABLE. THIS RN ASKS IF THE PT WOULD LIKE HER TO SPEAK WITH HER SON ABOUT REQUESTING FEMALE ONLY SHOWER ASSISTANCE. PT RESPONDS "THAT WOULD BE REALLY NICE OF YOU, JUST DON'T MAKE A BIG DEAL ABOUT IT I DON'T WANT ANYONE IN TROUBLE." PT HAS NO OTHER COMPLAINTS OR DISCOMFORTS AT THIS TIME, NO COMPLAINTS OF DYSURIA OR FREQUENCY. SN BARILLAS AND SHIPPING SPECIALIST ANUEL RAMÍREZ REMAIN IN ROOM AT THIS TIME.
--- NOTE | 2024-04-28 10:19 | NUR ---
PT NOT AVAILABLE FOR VISIT. PROVIDED PRAYER.
--- NOTE | 2024-04-28 10:48 | NUR ---
VS OBTAINED, RECORDED ON FLOW SHEET. PT STATED PAIN WAS 2/10, PROVIDED PAIN MEDICATION PER EMAR TO LIMIT PAIN DURING SHOWER. INSPECTED IV SITE PRIOR TO INFUSION, NO REDNESS OR IRRITATION. LISTENED TO HEART AND LUNGS, IRREGULAR RHYTHM BUT CLEAR BILATERALLY. RASH ON RIGHT THIGH HAS IMPROVED WHEN COMPARED TO THE MARKINGS. PT VOICED CONCERN ABOUT SHOWERING AT THE FACILITY, STATED SHE IS UNCOMFORTABLE WITH THE MEN. SUGGESTED THAT NURSE WOULD BRING CONCERN TO SON AND ASK FOR FEMALES TO BE ASSIGNED TO SHOWER.
--- NOTE | 2024-04-28 11:01 | NUR ---
IV INFUSION COMPLETE. SL WNL. pt UP IN CHAIR. DENIES ADDITIONAL NEEDS.
--- NOTE | 2024-04-28 11:21 | NUR ---
PT AMBULATES WITH FWW TO BATHROOM. SHE IS ASSISTED BY 2 STUDENT NURSEs AND AUTOMATIC PRINT DEVELOPER. SHE IS TAKING A SHOWER. SNs REMAIN IN ROOM AT THIS TIME.
--- NOTE | 2024-04-28 12:14 | NUR ---
BLANCHABLE REDDENED PATCH NOTED TO PTs LLQ, OUTLINED. PT REPORTS NO ITCHING, NO PAIN AT SITE. RED PATCHES TO THIGH CLEAR EXCEPT FOR ONE SMALL SPOT, ALSO FRESHLY OUTLINED. PT REPORTS NO ITCHING OR PAIN AT THIS SITE EITHER. CHARGE NURSE MADE AWARE. PT BACK IN BED AFTER SHOWER FROM STUDENT NURSEs. STUDENT NURSEs ALSO REMOVED PREVIOUS IV AND PLACED NEW 22G IV IN L FOREARM. IV MAG INFUSING WNL AT THIS TIME. NO OTHER REQUESTS, CALL LIGHT IN REACH.
--- NOTE | 2024-04-28 12:18 | NUR ---
PT WAS ABLE TO AMBULATE TO THE SHOWER 2PA. PT HAIR AND BODY FULLY WASHED. BOWEL INCONTENINCE WHEN STANDING, USED COMMODE, BM WAS LIQUID CONSITENCY. PT WAS ABLE TO STAND AND HOLD BAR WHEN WASHING GROIN. APPLIED POWER UNDER BREAST. RED ALEX ON LLQ, NOTIFIED NURSE AND MARKED WITH PEN. PROVIDED NEW GOWN, SOCKS AND BREIF. PT AMBULATED WELL TO BED BUT STATED SHE WAS TIRED. IV WAS DC, STUDENT MARLENE PROVIDED NEW IV IN LEFT ARM JUST ABOVE PREVIOUS IV. . MAG WAS ADMINISTEDM AND TOLERATED AT START. PLACED NEW PUREWICK, TURNED ON SUCTION. WARM BLANKET PROVIDED, CALL LIGHT IN REACH, BED IN LOW POSITION. PT STATED NO FURTHER NEEDS AT THIS TIME.
--- NOTE | 2024-04-28 13:10 | NUR ---
THIS RN ASSISTS ILA FROM PHYSICAL THERAPY TO AMBULATE WITH FWW FROM BED TO RECLINER. PT UP IN RECLINER AT THIS TIME, LUNCH TRAY IN FRONT OF HER, PUREWICK REMAINS IN PLACE WITH BRIEF, IV MAG INFUSING WNL. PT REQUESTING SPRITE AND CRANBERRY JUICE - PROVIDED. NO OTHER REQUESTS AT THIS TIME, CALL LIGHT IN REACH, CHAIR ALARM ON.
--- NOTE | 2024-04-28 13:46 | NUR ---
PT UP IN RECLINER WATCHING TELEVISION. IV MAG ALMOST FINISHED INFUSING AT THIS TIME, PT REPORTS NO PAIN OR DISCOMFORT AT NEW IV SITE. PT HAS NO COMPLAINS OF PAIN ANYWHERE. NO DYSURIA OR NAUSEA. PT CORRECTLY IDENTIFIES THAT SHE IS IN [place], BUT IS UNSURE WHERE IN [place]. DOES CORRECTLY ANSWER "APRIL" WHEN ASKED FOR THE DATE. RESPONDS "I'M HERE FOR THERAPY" WHEN ASKED WHY SHE CAME INTO THE HOSPITAL. PT RE-ORIENTED AT THIS TIME, VERBALIZES UNDERSTANDING BUT ALSO REPORTS "I'M JUST TIRED, I NEED TO SLEEP A LITTLE." PT REPORTS SHE IS COMFORTABLE IN THE RECLINER AND WOULD LIKE TO NAP THERE. NO OTHER REQUESTS AT THIS TIME, CALL LIGHT IN REACH. CHAIR ALARM ON.
--- NOTE | 2024-04-28 14:32 | NUR ---
OCCUPATIONAL THERAPY IN TO WORK WITH PT.
--- NOTE | 2024-04-28 16:09 | NUR ---
PT RESTING IN BED AT THIS TIME. PT IS REQUESTING TO SEE SOMEONE WHO IS SITTING AT THE NURSEs STATION BECAUSE SHE FEELS SHE WAS RUDE TO THEM AND SHE WOULD LIKE TO APOLOGIZE. THERAPEUTIC COMMUNICATION PROVIDED, PT INSISTS ON APOLOGIZING. NURSE AT THE STATION NOTIFIED OF PTs REQUEST. PT HAS NO OTHER REQUESTS AT THIS TIME, CALL LIGHT IN REACH.
--- NOTE | 2024-04-28 17:02 | NUR ---
Patient has been emotional throughout the day. They tried to self transfer and was stopped. 2PA to sit in the chair. Chair alarm set. Dinner tray was set up. Call light and personal items in reach.
--- NOTE | 2024-04-28 19:42 | NUR ---
GOT REPORT FROM DAY SHIFT NURSE.
--- NOTE | 2024-04-28 20:21 | NUR ---
FUR DRESSER OBTAINED VITALS. NO NEW I&O AT THIS TIME. PT STATES NO NEEDS AND CALL LIGHT WITHIN REACH.
--- NOTE | 2024-04-28 22:32 | NUR ---
PATIENT MOVED UP IN BED, COVERS PLACED OVER PATIENT. ROOM CLEANED UP AND OLD FOOD PLACED IN TRASH. PATIENT VERY TALKATIVE. BED IN LOW POSTION, CALL LIGHT ON.MEDICATIONS GIVEN.
--- NOTE | 2024-04-28 22:59 | NUR ---
PATIENT MOVED UP IN BED, NEW PUREWICK PLACED.
[2024-04-29 01:06] VITALS: BP 119/70
--- NOTE | 2024-04-29 02:06 | NUR ---
AWAKENS AT TIMES, CONFUSED, REDIRECTABLE, ON ROOM AIR, PUREWICK IN PLACE, BED ALRM IN PLACE
--- NOTE | 2024-04-29 04:31 | NUR ---
Sleeping, eyes closed, no s/sx distress, bed alarms in place
[2024-04-29 05:21] LABS: BASOPHILS 0.8 % (0-2); EOSINOPHILS 5.3 % (0-6); HEMATOCRIT 36.1 % (35.0-50.0); LYMPHOCYTES 35.1 % (24-44); MCH 29.6 (27-36); MCHC 33.2 g/dl (30-36); MCV 89.2 fl (81-99); MONOCYTES 9.3 % (0-12); NEUTROPHILS 49.5 % (39-80); PLATELET COUNT 240 K/uL (140-440); RBC 4.05 M/ul (4.3-5.7); RDW 14.9 (10.5-15.0)
[2024-04-29 06:01] VITALS: BP 131/86
[2024-04-29 06:51] VITALS: BP 131/86
--- NOTE | 2024-04-29 07:19 | NUR ---
REPORT RECEIVED FROM EMMA AGEE. PT IS RESTING IN BED WITH ONLY A SHEET, EYES CLOSED, RR EVEN AND UNLABORED. CALL LIGHT IN REACH, BED IN LOWEST POSITION WITH BED ALARM ON.
--- NOTE | 2024-04-29 08:42 | NUR ---
PT REMAINS RESTING IN BED, NOW ON BACK WITH MOUTH OPEN, RR EVEN AND UNLABORED WITH FAINT AUDIBLE SNORE. CALL LIGHT IN REACH. BED ALARM ON, BED IN LOWEST POSITION.
[2024-04-29] MEDS ORDERED: CEFTRIAXONE SODIUM 1 GM VIAL IV ONE (09:30)
[2024-04-29 09:39] VITALS: BP 149/91
[2024-04-29 10:53] VITALS: BP 149/91
--- NOTE | 2024-04-29 11:03 | NUR ---
PT REMAINS UP IN RECLINER AT THIS TIME, WATCHING TELEVISION. APPEARS CONTENT. CALL LIGHT IN REACH, NO REQUESTS.
--- NOTE | 2024-04-29 11:30 | NUR ---
SON AT NURSEs STATION DISCUSSING PLAN OF CARE WITH THIS RN. ALL QUESTIONS ANSWERED, CONCERNS ADDRESSED. DR ALVARADO AVAILABLE FOR ASSESSMENT AND UPDATES.
[2024-04-29] MEDS ORDERED: CEFDINIR300 MG PO (11:55)
== END 2024-04-29 12:43 | disposition home or self-care (01) | DRG 690 ==
LOC: ED 09:52 → MS 16:49
PROVIDERS: Emergency Medicine; ADMIT Student in an Organized Health Care Education/Training Program; ATTEND Student in an Organized Health Care Education/Training Program
DX: N39.0 Urinary tract infection, site not specified (principal); I48.91 Unspecified atrial fibrillation; M54.50 Low back pain, unspecified; G89.29 Other chronic pain; E03.9 Hypothyroidism, unspecified; K59.00 Constipation, unspecified; R21 Rash and other nonspecific skin eruption; F39 Unspecified mood [affective] disorder; B96.20 Unspecified Escherichia coli [E. coli] as the cause of diseases classified elsewhere; I10 Essential (primary) hypertension; M19.90 Unspecified osteoarthritis, unspecified site; G25.81 Restless legs syndrome; Z96.612 Presence of left artificial shoulder joint; F17.200 Nicotine dependence, unspecified, uncomplicated; Z96.611 Presence of right artificial shoulder joint; Z79.899 Other long term (current) drug therapy; Z79.891 Long term (current) use of opiate analgesic; Z79.890 Hormone replacement therapy; Z90.710 Acquired absence of both cervix and uterus
CPT/HCPCS: 36415; 51798; 74177; 76705; 80048; 80053; 81001; 83690; 83735; 84484; 85025; 87040; 87088; 87502; 93005; 93010; 97110; 97162; 97166; 97530; A9270; J0696; J1650; J1790; J2060; J2405; J3475; J7040; J7121; Q9967

== ENCOUNTER 2024-07-11 15:04 | Emergency (ER) | payer MEDICARE, OTHER ==
[~2024-07-11] VITALS: Ht 154.9 cm; Wt 53.5 kg
[~2024-07-11 15:04] MED LIST changes: +ALEVE220 M1 PO; +CEFDINIR300 MG PO
[2024-07-11 15:39] LABS: BILIRUBIN, URINE NEGATIVE (negative); BLOOD/HGB, URINE NEGATIVE (Negative); KETONE, URINE TRACE (Negative); LEUK ESTERASE, URINE NEGATIVE (negative); NITRITE, URINE NEGATIVE (negative)
[2024-07-11 15:47] LABS: BACTERIA, URINE NONE SEEN /hpf (negative); CASTS, URINE NONE SEEN \\lpf; CRYSTALS, URINE NONE SEEN (0-1+); EPITHELIAL CELLS, URINE SQUAMOUS 3+ /lpf (0-1+); RED BLOOD CELLS, URINE 0-1 /hpf (0-5); WHITE BLOOD CELLS, URINE 21-40 /HPF (0-5)
[2024-07-11 15:48] LABS: COLLECTION TYPE, URINE CATH; REFLEX CULTURE, URINE No (No)
[2024-07-11 17:15] VITALS: BP 137/91
[2024-07-11] MEDS ORDERED: LIDOCAINE 2% VISCOUS 6 ML SYR TOP ONE (17:15)
== END 2024-07-11 17:15 | disposition home or self-care (01) ==
LOC: ED 15:04
PROVIDERS: Emergency Medicine
DX: S09.90XA Unspecified injury of head, initial encounter (principal); S80.211A Abrasion, right knee, initial encounter; I10 Essential (primary) hypertension; I48.91 Unspecified atrial fibrillation; W19.XXXA Unspecified fall, initial encounter; Z79.899 Other long term (current) drug therapy
CPT/HCPCS: 51702; 70450; 81001; 87088; 99284-25

== ENCOUNTER 2025-01-30 13:36 | Emergency (ER) | payer MEDICARE, OTHER ==
[~2025-01-30] VITALS: Ht 154.9 cm; Wt 57.5 kg
--- OUTSIDE RECORDS SUMMARY | 2025-01-30 13:37 | XMS ---
PreManage Notification: MARYBEL CAMARENA Security Physician Assistant Events No recent Security Events currently on file CRITERIA MET - PDMP CARE PROVIDERS FARHAN MONAE Nurse Practitioner: Family Current PHONE: [phone] ARDEN HERNANDEZ Internal Medicine: Geriatric Medicine Current PHONE: Unknown RASHID CAMARENA Nurse Practitioner: Gerontology Albertina SUBRAMANIAN PHONE: [phone] SONJA GOLD Physician Adding Machine Servicer Albertina RODRIGUEZ PHONE: [phone] DELFINA TAMAYO Nurse Practitioner: [facility] PHONE: [phone] SKYE REBOLLEDO Emergency Medicine Current PHONE: [phone] DELROY ANDERSON Internal Medicine Current PHONE: Unknown Claudette has no Care Guidelines for this patient. Tamika VISIT COUNT (12 MO.) Jakob Hobson TOTAL 4 NOTE: Visits indicate total known visits. ED/UCC VISIT TRACKING (12 MO.) 01/30/2025 13:36 [facility] [place] TYPE: Emergency COMPLAINT: - FALL 07/11/2024 15:05 [facility] [place] TYPE: Emergency COMPLAINT: - FALL DIAGNOSES: - Abrasion, right knee, initial encounter - Essential (primary) hypertension - Other penitentiary (current) drug therapy - Unspecified atrial fibrillation - Unspecified fall, initial encounter - Unspecified injury of head, initial encounter 04/25/2024 09:[address] [facility] [place] TYPE: Emergency COMPLAINT: - NAUSEA 02/09/2024 08:38 [place] [place] [facility] [place] Emergency COMPLAINT: - FALL DIAGNOSES: - Essential (primary) hypertension - Fall from or off toilet without subsequent striking against object, initial encounter - Headache, unspecified - Hormone replacement therapy - Laceration without foreign body of right elbow, initial encounter - watermelon inspector (current) use of opiate analgesic - Other penitentiary (current) drug therapy - Unspecified injury of head, initial encounter INPATIENT VISIT TRACKING (12 MO.) 04/25/2024 16:49 [facility] [place] TYPE: Medical Surgical COMPLAINT: - UTI DIAGNOSES: - Acquired absence of both cervix and uterus - Acquired absence of both cervix and uterus - Constipation, unspecified - Constipation, unspecified - Essential (primary) hypertension - Essential (primary) hypertension - Hormone replacement therapy - Hormone replacement therapy - Hypothyroidism, unspecified - Hypothyroidism, unspecified - watermelon inspector (current) use of opiate analgesic - watermelon inspector (current) use of opiate analgesic - Low back pain, unspecified - Low back pain, unspecified - Nicotine dependence, unspecified, uncomplicated - Nicotine dependence, unspecified, uncomplicated - Other chronic pain - Other chronic pain - Other emt intermediate (current) drug therapy - Other penitentiary (current) drug therapy - Presence of left artificial shoulder joint - Presence of left artificial shoulder joint - Presence of right artificial shoulder joint - Presence of right artificial shoulder joint - Rash and other nonspecific skin eruption - Rash and other nonspecific skin eruption - Restless legs syndrome - Restless legs syndrome - Unspecified atrial fibrillation - Unspecified atrial fibrillation - Unspecified Escherichia coli [E. coli] as the cause of diseases classified elsewhere - Unspecified Escherichia coli [E. coli] as the cause of diseases classified elsewhere - Unspecified mood [affective] disorder - Unspecified mood [affective] disorder - Unspecified osteoarthritis, unspecified site - Unspecified osteoarthritis, unspecified site - Urinary tract infection, site not specified [email or web address]
[2025-01-30 13:57] LABS: BASOPHILS 0.6 % (0.1-1.2); EOSINOPHILS 2.7 % (0.7-5.8); LYMPHOCYTES 25.8 % (19.3-51.7); MCH 29.6 PG (25.6-32.2); MCHC 32.6 g/dL (32.2-35.5); MCV 90.6 fL (79.4-94.8); MONOCYTES 9.2 % (4.7-12.5); NEUTROPHILS 61.5 % (34.0-71.1); RBC 4.06 M/uL (3.93-5.22)
[2025-01-30 14:09] LABS: ALT (SGPT) 18.0 U/L (14-59); AST (SGOT) 18.0 U/L (15-37); GLOMERULAR FILTRATION RATE,EST 72.0 mL/min (>60); PROTEIN, TOTAL 6.5 g/dL (6.4-8.2); UREA NITROGEN 10.0 mg/dL (7-18)
[2025-01-30 15:16] LABS: BLOOD/HGB, URINE NEGATIVE (Negative); KETONE, URINE NEGATIVE (Negative); LEUK ESTERASE, URINE NEGATIVE (negative); NITRITE, URINE NEGATIVE (negative)
[2025-01-30 17:33] VITALS: BP 154/82
--- NOTE | 2025-02-01 07:28 | EKG ---
[facility] [address] [facility] [place] [address] Signed Atrial fibrillation Low voltage QRS Abnormal ECG When compared with ECG of 25-APR-2024 10:33, No significant change was found Confirmed by Kirill Ramirez DO ([id number]) on 02/01/2025 7:28:19 AM Electronically Signed By: KIRILL RAMIREZ DO 02/01/25 0728 PATIENT NAME: MARYBEL CAMARENA Electrocardiogram DATE OF : 40 PHYSICIAN: KIRILL RAMIREZ DO REPORT #: [id number] REPORT IS CONFIDENTIAL AND NOT TO BE RELEASED WITHOUT AUTHORIZATION
== END 2025-01-30 17:33 | disposition home or self-care (01) ==
LOC: ED 13:36
PROVIDERS: Emergency Medicine
DX: S09.90XA Unspecified injury of head, initial encounter (principal); I10 Essential (primary) hypertension; W18.30XA Fall on same level, unspecified, initial encounter; Z79.899 Other long term (current) drug therapy
CPT/HCPCS: 36415; 70450; 72170; 80053; 81003; 83735; 84484; 85025; 93005; 93010; 99285-25